=== PATIENT | female | born 1985 | race Caucasian/White ===

== ENCOUNTER 2019-11-04 22:53 | Emergency (ER) | payer OTHER ==
[2019-11-04 23:57] LABS: Protime INR 0.96
[2019-11-04] MEDS ORDERED: ACETAMINOPHEN 500 MG TAB ONE (23:57)
[2019-11-04] MEDS ORDERED: FENTANYL CITR 100 MCG/2 ML ONE (23:57)
[2019-11-04 23:58] LABS: Absolute Lymphocytes (CBC) 2.6 K/uL (0.7-4.9); Basophils % 0.7 % (0-1.3); Hematocrit 43.1 % (36.0-45.0); Lymphocytes % 22.1 % (15.3-44.8); RBC Red Blood Cell Count 4.74 M/uL (3.86-4.86)
[2019-11-05 00:11] LABS: ALT/SGPT 24 U/L (12-78); AST/SGOT 12 U/L (15-37); Albumin 3.6 g/dL (3.4-5.0); Alkaline Phosphatase 83 U/L (45-117); BUN Blood Urea Nitrogen 12 mg/dL (7-18); Bicarbonate 25 mmol/L (21-32); Bilirubin Direct 0.1 mg/dL (0-0.2); Bilirubin Total 0.3 mg/dL (0.2-1.0); Glucose Level 102 mg/dL (74-106); Potassium 3.8 mmol/L (3.5-5.1); Protein, Total 7.6 g/dL (6.4-8.2); Sodium Level 140 mmol/L (136-145); Troponin (Emerg Dept Use Only) < 0.02 ng/mL (0.0-0.045)
[2019-11-05 00:18] LABS: Urine Mucus 3+ /HPF (NONE SEEN)
[2019-11-05 00:26] LABS: Urine Bacteria <20 /HPF (<20); Urine Culture Reflex Order NOT NEEDED; Urine RBC <5 /HPF (NONE SEEN)
[2019-11-05 00:26] LABS: Urine Blood NEGATIVE (NEG); Urine Glucose NEGATIVE (NEG); Urine Protein TRACE (NEG); Urine Specific Gravity >1.030 (1.005-1.030); Urine pH 5.5 (5.0-7.0)
[2019-11-05] MEDS ORDERED: LORazepam 2 MG/ML VIAL ONE (01:02)
--- NOTE | 2019-11-05 01:46 | EDPHYS ---
Physician Documentation [facility] Name: Jarvis Lewis Age: 34 yrs Sex: Female : 1985 Arrival Date: 11/04/2019 Time: 22:58 Bed 7 Private MD: ED Physician Baldo Barbosa HPI: 11/04 23:48 This 34 yrs old Female presents to ER via Wheelchair with complaints of Chest wa Pain. 23:48 The patient or guardian reports chest pain that is located primarily in the anterior wa aspect of left upper chest and left breast. The pain does not radiate. Associated signs and symptoms: Pertinent positives: shortness of breath, Pertinent negatives: abdominal pain, cough, lightheadedness. The chest pain is described as sharp. Duration: The patient or guardian reports a single episode, that is still ongoing. Modifying factors: The symptoms are alleviated by nothing. the symptoms are aggravated by deep breath. Severity of pain: At its worst the pain was moderate in the emergency department the pain is unchanged. The patient has experienced a previous episode, approximately 3 years ago, was dx'd with PE. The patient has not recently seen a physician. h/o PE. taken off blood thinners 2 yrs ago. c/o pleuritic chest pain since this AM. denies cough, fever, or leg swelling. states pain L side. worse with deep breathing.. CATERING SOUS CHEF: 23:09 LMP 10/04/2019 ak1 Historical: - Allergies: 23:12 Fluoxetine; ak1 - Home Meds: 23:12 None [Active]; ak1 - PMHx: 23:12 Pulmonary Embolism; ak1 - PSHx: 23:12 LEFT ARM sx; ak1 - Immunization history:: Adult Immunizations unknown. - Social history:: Smoking status: Patient/guardian denies using tobacco. - Ebola Screening: : No symptoms or risks identified at this time. - Family history:: not pertinent. - Hospitalizations: : No recent hospitalization is reported. ROS: 11/05 01:23 Constitutional: Negative for fever, chills, and weight loss, Eyes: Negative for injury, wa pain, redness, and discharge, ENT: Negative for injury, pain, and discharge, Neck: Negative for injury, pain, and swelling, Abdomen/GI: Negative for abdominal pain, nausea, vomiting, diarrhea, and constipation, Back: Negative for injury and pain, : Negative for injury, bleeding, discharge, and swelling, MS/Extremity: Negative for injury and deformity, Skin: Negative for injury, rash, and discoloration, Neuro: Negative for headache, weakness, numbness, tingling, and seizure, Psych: Negative for depression, anxiety, suicide ideation, homicidal ideation, and hallucinations. Cardiovascular: Positive for chest pain, Negative for edema, orthopnea, palpitations. Respiratory: Positive for shortness of breath, at rest. Exam: :24 Constitutional: This is a well developed, well nourished patient who is awake, alert, wa and in no acute distress. Head/Face: Normocephalic, atraumatic. Eyes: Pupils equal round and reactive to light, extra-ocular motions intact. Lids and lashes normal. Conjunctiva and sclera are non-icteric and not injected. Cornea within normal limits. Periorbital areas with no swelling, redness, or edema. ENT: Nares patent. No nasal discharge, no septal abnormalities noted. Tympanic membranes are normal and external auditory canals are clear. Oropharynx with no redness, swelling, or masses, exudates, or evidence of obstruction, uvula midline. Mucous membranes moist. Neck: Trachea midline, no thyromegaly or masses palpated, and no cervical lymphadenopathy. Supple, full range of motion without nuchal rigidity, or vertebral point tenderness. No Meningismus. Chest/axilla: Normal chest wall appearance and motion. Nontender with no deformity. No lesions are appreciated. Abdomen/GI: Soft, non-tender, with normal bowel sounds. No distension or tympany. No guarding or rebound. No evidence of tenderness throughout. Back: No spinal tenderness. No costovertebral tenderness. Full range of motion. Skin: Warm, dry with normal turgor. Normal color with no rashes, no lesions, and no evidence of cellulitis. MS/ Extremity: Pulses equal, no cyanosis. Neurovascular intact. Full, normal range of motion. Neuro: Awake and alert, GCS 15, oriented to person, place, time, and situation. Cranial nerves II-XII grossly intact. Motor strength 5/5 in all extremities. Sensory grossly intact. Cerebellar exam normal. Normal gait. Psych: Awake, alert, with orientation to person, place and time. Behavior, mood, and affect are within normal limits. 01:24 Cardiovascular: Rate: normal, Rhythm: regular, Pulses: no pulse deficits are appreciated, Heart sounds: normal, Edema: is not appreciated, JVD: is not appreciated. 01:24 Respiratory: the patient does not display signs of respiratory distress, Respirations: normal, Breath sounds: are clear throughout, Respiratory rate: nml Vital Signs: 11/04 23:09 BP 131 / 109; Pulse 98; Resp 20; Temp 98.7(TE); Pulse Ox 100% on R/A; Weight 94.35 kg ak1 (R); Height 5 ft. 2 in. (157.48 cm) (R); Pain 9/10; 11/05 00:00 BP 123 / 78; Pulse 93; Resp 20; Pulse Ox 98% on R/A; lp1 00:30 BP 126 / 81; Pulse 77; Resp 15; Pulse Ox 100% on R/A; lp1 01:05 BP 141 / 93; Pulse 73; Resp 16; Pulse Ox 98% on R/A; Pain 8/10; lp1 02:02 BP 123 / 90; Pulse 73; Resp 18; Pulse Ox 97% on R/A; lp1 11/04 23:09 Body Mass Index 38.04 (94.35 kg, 157.48 cm) ak1 MDM: 11/04 23:02 Patient medically screened. wa 11/05 01:25 Differential diagnosis: h/o PE 3 years ago. presents with pleuritic chest pain and wa symptoms she says similar to her symptoms from previous PE. will work PE in the differential. r/o with CT chest. note: in the past, no DVT found on leg US. she has no LE complaints today either. 01:28 Data reviewed: lab test result(s). Test interpretation: by ED physician or midlevel me provider: labs noted wnl. CT pending. 01:37 Test interpretation: by ED physician or midlevel provider: EKG: HR 88. low voltage. nml wa sinus. nml axis. no zonal ischemic changes noted on EKG. Response to treatment: the patient's symptoms have markedly improved after treatment. 01:38 Test interpretation: by ED physician or midlevel provider: CT chest: no PE. no acute wa abnml. 01:41 ED course: improved. pt resting. negative for PE. will refer to cardiology and pulm. me advised immediate return for worsening. 11/04 23:30 Order name: Basic Metabolic Panel; Complete Time: 00:29 me 11/04 23:30 Order name: CBC with Diff; Complete Time: 00:29 me 11/04 23:30 Order name: LFT's; Complete Time: 00:29 me 11/04 23:30 Order name: PT-INR; Complete Time: 00:30 me 11/04 23:30 Order name: Troponin (emerg Dept Use Only); Complete Time: 00:30 me 11/04 23:32 Order name: Urine Microscopic Only; Complete Time: 00:29 me 11/04 23:31 Order name: Chest Pa And Lat (2 Views) XRAY me 11/05 00:03 Order name: Urine Dipstick--Ancillary (enter results); Complete Time: 00:30 [facility] 11/05 00:03 Order name: Urine --Ancillary (enter results); Complete Time: 00:29 [facility] 11/05 00:33 Order name: CT Chest For PE Angio me 11/04 23:30 Order name: EKG; Complete Time: 23:32 me 11/04 23:30 Order name: Cardiac monitoring; Complete Time: 23:32 me 11/04 23:30 Order name: EKG - Nurse/Tech; Complete Time: 23:32 me 11/04 23:30 Order name: IV Saline Lock; Complete Time: 23:32 me 11/04 23:30 Order name: Labs collected and sent; Complete Time: 23:32 me 11/04 23:30 Order name: O2 Per Protocol; Complete Time: 23:32 me 11/04 23:30 Order name: O2 Sat Monitoring; Complete Time: 23:32 me 11/04 23:32 Order name: Urine Dipstick-Ancillary (obtain specimen); Complete Time: 00:09 me 11/04 23:33 Order name: Urine Test (obtain specimen); Complete Time: 00:09 me Administered Medications: 00:09 Drug: Tylenol 1000 mg Route: PO; lp1 00:53 Follow up: Response: No adverse reaction lp1 00:09 Drug: fentaNYL (PF) 25 mcg Route: IVP; Site: right antecubital; lp1 00:52 Follow up: Response: Pain is unchanged, physician notified; RASS: Restless (+1) lp1 01:08 Drug: Ativan 1 mg Route: IVP; Site: right antecubital; lp1 01:45 Follow up: Response: Marked relief of symptoms; Anxiety decreased lp1 02:01 Drug: Aspirin Chewable Tablet 324 mg Route: PO; lp1 02:25 Follow up: Response: No adverse reaction lp1 Disposition: 11/05/19 01:45 Discharged to Home. Impression: acute left side pleuritic chest pain. - Condition is Stable. - Prescriptions for Albuterol Sulfate 90 mcg/actuation - inhale 1-2 puff by INHALATION route every 4-6 hours; 1 Inhaler. Ibuprofen 600 mg Oral Tablet - take 1 tablet by ORAL route every 8 hours As needed take with food; 20 tablet. - Medication Reconciliation Form, Thank You Letter, Antibiotic Education, Prescription Opioid Use form. - Follow up: Luis F Scott MD; Reason: Recheck today's complaints. Follow up: Stephen Rivas MD; When: 1 - 2 days; Reason: Recheck today's complaints. - Problem is new. - Symptoms have improved. - Notes: take motrin for pain as needed. follow up with the heart doctor and the lung doctor prescribed for you. return immediately for worsening symptoms Signatures: Dispatcher [employer] EDSivan Driscoll RN RN lp1 Evette Smith RN RN ak1 Baldo Barbosa MD MD wa Corrections: (The following items were deleted from the chart) 02:26 01:45 11/05/2019 01:45 Discharged to Home. Impression: acute left side pleuritic chest lp1 pain. Condition is Stable. Forms are Medication Reconciliation Form, Thank You Letter, Antibiotic Education, Prescription Opioid Use. Follow up: Luis F Scott; Reason: Recheck today's complaints. Follow up: tSephen Rivas; When: 1 - 2 days; Reason: Recheck today's complaints. Problem is new. Symptoms have improved. wa
--- NOTE | 2019-11-05 01:46 | ER ---
Nurse's Notes [facility] Name: Jarvis Lewis Age: 34 yrs Sex: Female : 1985 Arrival Date: 11/04/2019 Time: 22:58 Bed 7 Private MD: Diagnosis: acute left side pleuritic chest pain Presentation: 11/04 23:10 Presenting complaint: Patient states: SOB and palpitations since 629. Transition of ak1 care: patient was not received from another setting of care. Onset of symptoms was November 04, 2019. Risk Assessment: Do you want to hurt yourself or someone else? Patient reports no desire to harm self or others. Initial Sepsis Screen: Does the patient meet any 2 criteria? No. Patient's initial sepsis screen is negative. Does the patient have a suspected source of infection? No. Patient's initial sepsis screen is negative. Care prior to arrival: None. 23:10 Method Of Arrival: Wheelchair ak1 23:10 Acuity: DAVID 3 ak1 Triage Assessment: 23:12 General: Appears in no apparent distress. Behavior is anxious. 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 - Social history:: Smoking status: Patient/guardian denies using tobacco. - Ebola Screening: : No symptoms or risks identified at this time. - Family history:: not pertinent. - Hospitalizations: : No recent hospitalization is reported. Screenin:29 Abuse screen: Denies threats or abuse. Denies injuries from another. Nutritional lp1 screening: No deficits noted. Tuberculosis screening: No symptoms or risk factors identified. Fall Risk None identified. Assessment: 23:30 General: Appears uncomfortable, Behavior is anxious, crying. Pain: Complains of pain in lp1 chest Pain does not radiate. Pain currently is 8 out of 10 on a pain scale. Quality of pain is described as sharp, Pain began gradually. Neuro: Level of Consciousness is awake, alert, obeys commands, Oriented to person, place, time, situation. Cardiovascular: Capillary refill < 3 seconds in bilateral fingers toes Patient's skin is warm and dry. Respiratory: Reports shortness of breath at rest on exertion pain with respiration Airway is patent Respiratory effort is even, Respiratory pattern is regular, Breath sounds are clear bilaterally. Onset: The symptoms/episode began/occurred gradually. GI: No signs and/or symptoms were reported involving the gastrointestinal system. : No signs and/or symptoms were reported regarding the genitourinary system. EENT: No signs and/or symptoms were reported regarding the EENT system. Derm: Skin is pink, warm \T\ dry. Musculoskeletal: No deficits noted. 23:45 Reassessment: Patient returned from radiology. lp1 11/05 00:42 Reassessment: Patient and/or family updated on plan of care and expected duration. Pain lp1 level reassessed. Reassessment: Patient states no pain relief at this time; Provider notified. General: Behavior is anxious, crying. 01:05 Reassessment: Patient returned from CT. lp1 02:02 Reassessment: Patient states chest pain relief at this time; aware of discharge lp1 instructions, attempting to call friend for ride home. 02:25 Reassessment: Friend at bedside for discharge of patient. lp1 Vital Signs: 11/04 23:09 BP 131 / 109; Pulse 98; Resp 20; Temp 98.7(TE); Pulse Ox 100% on R/A; Weight 94.35 kg ak1 (R); Height 5 ft. 2 in. (157.48 cm) (R); Pain 9/10; 11/05 00:00 BP 123 / 78; Pulse 93; Resp 20; Pulse Ox 98% on R/A; lp1 00:30 BP 126 / 81; Pulse 77; Resp 15; Pulse Ox 100% on R/A; lp1 01:05 BP 141 / 93; Pulse 73; Resp 16; Pulse Ox 98% on R/A; Pain 8/10; lp1 02:02 BP 123 / 90; Pulse 73; Resp 18; Pulse Ox 97% on R/A; lp1 11/04 23:09 Body Mass Index 38.04 (94.35 kg, 157.48 cm) ak1 ED Course: 11/04 22:58 Patient arrived in ED. cl3 23:02 Baldo Barbosa MD is Attending Physician. wa 23:09 Arm band placed on Patient placed in an exam room, on a stretcher, on pulse oximetry, ak1 Patient notified of wait time. 23:11 Triage completed. ak1 23:28 Sivan Allen, RN is Primary Nurse. lp1 23:29 Patient has correct armband on for positive identification. Placed in gown. Bed in low lp1 position. Call light in reach. air sampling and monitoring on. Pulse ox on. NIBP on. 23:30 Patient maintains SpO2 saturation greater than 95% on room air. lp1 23:57 Chest Pa And Lat (2 Views) XRAY In Process Unspecified. EDMS 12 01:03 CT Chest For PE Angio In Process Unspecified. EDMS 01:10 No provider procedures requiring assistance completed. lp1 01:43 Luis F Scott MD is Referral Physician. wa 01:43 Stephen Rivas MD is Referral Physician. wa 02:02 IV discontinued, No redness/swelling at site. Pressure dressing applied. lp1 Administered Medications: 00:09 Drug: Tylenol 1000 mg Route: PO; lp1 00:53 Follow up: Response: No adverse reaction lp1 00:09 Drug: fentaNYL (PF) 25 mcg Route: IVP; Site: right antecubital; lp1 00:52 Follow up: Response: Pain is unchanged, physician notified; RASS: Restless (+1) lp1 01:08 Drug: Ativan 1 mg Route: IVP; Site: right antecubital; lp1 01:45 Follow up: Response: Marked relief of symptoms; Anxiety decreased lp1 02:01 Drug: Aspirin Chewable Tablet 324 mg Route: PO; lp1 02:25 Follow up: Response: No adverse reaction lp1 Outcome: 01:45 Discharge ordered by . wa 02:03 Condition: good lp1 02:03 Discharge instructions given to patient, Instructed on discharge instructions, follow up and referral plans. medication usage, Demonstrated understanding of instructions, follow-up care, medications, Prescriptions given X 2. 02:26 Discharged to home ambulatory, with friend. lp1 02:26 Patient left the ED. lp1 Signatures: Dispatcher [employer] EDAZ Sivan Allen, ARSALAN RN lp1 Evette Smith RN RN ak1 Baldo Barbosa MD MD wa Lewis, Charde cl3
[2019-11-05] MEDS ORDERED: ASPIRIN 81 MG CHEWABLE TABLET ONE (01:52)
--- NOTE | 2019-11-05 08:17 | RAD REPORT ---
EXAM DESCRIPTION: RAD - Chest Pa And Lat (2 Views) - 11/04/2019 11:57 pm CLINICAL HISTORY: CHEST PAIN Chest pain. COMPARISON: Chest Single View dated 04/04/2017; Chest Single View dated 06/18/2016; Chest Single View dated 06/17/2016 FINDINGS: The lungs are clear. The heart is normal in size. No displaced fractures. IMPRESSION: No acute or concerning finding suspected.
--- NOTE | 2019-11-05 08:22 | EKG ---
Test Date: 2019-11-04 Test Time: 23:09:39 Wildlife Photographer: ALL MEASUREMENT RESULTS: Intervals: Rate: 88 SC: 144 QRSD: 78 QT: 370 QTc: 447 [place]: P: 29 SC: 144 QRS: 40 T: 36 INTERPRETIVE STATEMENTS: Normal sinus rhythm Low voltage QRS Borderline ECG Compared to ECG 04/04/2017 13:08:54 Low QRS voltage now present Electronically Signed On 11-05-19 08:21:59 HOSPITALIST PHYSICIAN by Leighton Hogan
[2019-11-05 10:08] VITALS: TEMP 98.7
[2019-11-05 10:18] VITALS: BP 123/90; O2SAT 97
--- NOTE | 2019-11-05 10:32 | RAD REPORT ---
EXAM DESCRIPTION: CT Angiography Chest With Intravenous Contrast CLINICAL HISTORY: The patient is 34 years old and is Female; chest pain. H/o PE TECHNIQUE: Axial computed tomographic angiography images of the chest with intravenous contrast. T his CT exam was performed using one or more of the following dose reduction techniques: automated e xposure control, adjustment of the mA and/or kV according to patient size, and/or use of iterative re construction technique. MIP reconstructed images were created and reviewed. Oblique reformatted images were created and reviewed. DLP: 456 mGy*cm COMPARISON: None. FINDINGS: PULMONARY ARTERIES: Unremarkable. No pulmonary embolism. AORTA: No acute findings. No thoracic aortic aneurysm. LUNGS: No focal consolidation. Minimal bibasilar atelectasis. PLEURAL SPACE: No pleural effusion or pneumothorax. HEART: The heart is normal in size. No pericardial effusion. No evidence of RV dysfunction. BONES/JOINTS: No acute fracture. No dislocation. SOFT TISSUES: Unremarkable. LYMPH NODES: Unremarkable. No enlarged lymph nodes. IMPRESSION: No pulmonary embolism. No acute intrathoracic abnormality. Electronically signed by: Harpal Rivas DO 11/05/2019 1:18 AM SENIOR DIRECTOR MARKETING Due to temporary technical issues with the PACS/Fluency reporting system, reports are being signed by the in house radiologist as a courtesy to ensure prompt reporting. The interpreting radiologist is f ully responsible for the content of the report.
== END 2019-11-05 02:26 | disposition home or self-care (01) ==
LOC: ER 22:53
DX: R07.81 Pleurodynia (principal); Z88.8 Allergy status to other drugs, medicaments and biological substances
CPT/HCPCS: 93005; 85025; 80048; 36415; 81025; 85610; 80076; 81003; 81015; 84484; 71275; 71046; 96375; 96374; 99285; Q9967; J3010

== ENCOUNTER 2021-05-09 23:56 | Emergency (ER) | payer OTHER, SELFPAY ==
--- OUTSIDE RECORDS SUMMARY | 2021-05-09 23:59 | XMS REPORT | Continuity of Care Document ---
:1985 Author Organization [facility] t Address [address] [place] [address] Care Team Providers Name Role Phone Claudio Man DO Attending Clinician Bruce Jiang MD Attending Clinician Problems This patient has no known problems. Allergies, Adverse Reactions, Alerts This patient has no known allergies or adverse reactions. Medications This patient has no known medications. Procedures This patient has no known procedures. Encounters Start End Encounter Admission Attending Care Care Encounter Source Date/Time Date/Time Type Type Clinicians Facility Department ID 2021-02-14 2021-02-14 Patient Donovan [facility] [id number] 00:00:00 00:00:00 Outreach Skinny DE JESUS [id number] Claudio [facility] [id number] FANNY [id number] 2020-07-26 2020-07-26 Office Apolinar CAJESSICA [id number] 13:43:49 15:01:01 Visit Desiree Stratton [id number] Enrrique [id number] Yue [id number] [address] Results This patient has no known results.
[2021-05-10] MEDS ORDERED: ONDANSETRON 4 MG (ODT) TAB ONE (01:13)
[2021-05-10] MEDS ORDERED: HYDROCODONE/APAP 10/325 TAB ONE (01:14)
--- NOTE | 2021-05-10 02:00 | EDPHYS ---
Physician Documentation [facility] Name: Jarvis Lewis Age: 35 yrs Sex: Female : 1985 Arrival Date: 05/10/2021 Time: 00:01 Bed 23 Private MD: ED Physician Godwin Viramontes HPI: 05/10 01:53 This 35 yrs old Female presents to ER via EMS with complaints of Arm Injury, rn Arm Pain. 01:53 The patient or guardian complains of decreased range of motion, injury, pain. The rn complaints affect the left wrist. Onset: The symptoms/episode began/occurred just prior to arrival. Associated signs and symptoms: Pertinent positives: pain, swelling, Pertinent negatives: weakness. Severity of symptoms: At their worst the symptoms were moderate, in the emergency department the symptoms have improved. The patient has not experienced similar symptoms in the past. Reports closing dresser drawer and got left hand caught, + heard a crack, thinks broke left wrist. 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 - Social history:: Smoking status: Patient denies any tobacco usage or history of. - Family history:: not pertinent. - Hospitalizations: : No recent hospitalization is reported. ROS: 01:53 Constitutional: Negative for fever, chills, and weight loss, MS/Extremity: + injury and rn pain to left wrist Skin: NO laceration Exam: 01:53 Constitutional: This is a well developed, well nourished patient who is awake, alert, rn appears to be in pain, holding arm elevated, with ice to injured area. MS/ Extremity: Pulses equal, no cyanosis. Neurovascular intact. + swelling and ecchymosis with focal tenderness left distal radius. No open wounds. Vital Signs: 00:30 BP 154 / 110; Pulse 91; Resp 18 S; Temp 98.7(O); Pulse Ox 98% on R/A; Weight 94.35 kg; bb Height 5 ft. 3 in. (160.02 cm); Pain 10/10; 02:00 BP 155 / 103; Pulse 87; Resp 16 S; Temp 98.3(O); Pulse Ox 95% on R/A; Pain 5/10; bb 00:30 Body Mass Index 36.85 (94.35 kg, 160.02 cm) bb MDM: 01:05 Patient medically screened. rn 01:53 Differential diagnosis: closed fracture, contusion. Data reviewed: vital signs, nurses rn notes, radiologic studies, plain films, and as a result, I will discharge patient. Counseling: I had a detailed discussion with the patient and/or guardian regarding: the historical points, exam findings, and any diagnostic results supporting the discharge/admit diagnosis, radiology results, the need for outpatient follow up, to return to the emergency department if symptoms worsen or persist or if there are any questions or concerns that arise at home. Response to treatment: the patient's symptoms have mildly improved after treatment, and as a result, I will discharge patient. Special discussion: I discussed with the patient/guardian in detail that at this point there is no indication for admission to the hospital. It is understood, however, that if the symptoms persist or worsen the patient needs to return immediately for re-evaluation. Based on the history and exam findings, there is no indication for further emergent testing or inpatient evaluation. I discussed with the patient/guardian the need to see the orthopedic surgeon for further evaluation of the symptoms. 05/10 00:34 Order name: XRAY Wrist LEFT 3 view 05/10 00:34 Order name: XRAY Hand LEFT 3 View bb 05/10 01:18 Order name: Splint - Sugar Tong - Forearm; Complete Time: 01:38 rn Administered Medications: 01:02 Drug: Gilead (HYDROcodone-acetaminophen) 10 mg-325 mg 1 tabs {Note: RASS 0.} Route: PO; bb 02:01 Follow up: Response: No adverse reaction; Pain is decreased; RASS: Alert and Calm (0) bb 01:03 Drug: Zofran (Ondansetron) 4 mg Route: PO; bb 02:01 Follow up: Response: No adverse reaction bb Disposition: 05/10/21 01:59 Discharged to Home. Impression: Displaced comminuted fracture of shaft of radius, left arm. - Condition is Stable. - Discharge Instructions: Cast or Splint Care, Adult, Wrist Fracture Treated With Immobilization. - Prescriptions for Tylenol- Codeine #3 300-30 mg Oral Tablet - take 1 tablet by ORAL route every 4-6 hours As needed; 15 tablet. - Medication Reconciliation Form, Thank You Letter, Antibiotic Education, Prescription Opioid Use form. - Follow up: Brandon Novoa MD; When: 5 - 6 days; Reason: Recheck today's complaints, Re-evaluation by your physician. - Problem is new. - Symptoms have improved. Signatures: Dispatcher [employer] EDLia Taveras RN RN Godwin Osborn MD MD rn liaison: (The following items were deleted from the chart) 02:02 01:59 05/10/2021 01:59 Discharged to Home. Impression: Displaced comminuted fracture of bb shaft of radius, left arm. Condition is Stable. Forms are Medication Reconciliation Form, Thank You Letter, Antibiotic Education, Prescription Opioid Use. Follow up: Dr. Brandon Novoa; When: 5 - 6 days; Reason: Recheck today's complaints, Re-evaluation by your physician. Problem is new. Symptoms have improved. rn
--- NOTE | 2021-05-10 02:00 | ER ---
Nurse's Notes [facility] Name: Jarvis Lewis Age: 35 yrs Sex: Female : 1985 Arrival Date: 05/10/2021 Time: 00:01 Bed 23 Private MD: Diagnosis: Displaced comminuted fracture of shaft of radius, left arm Presentation: 05/10 00:30 Chief complaint: EMS states: they were toned out for report of pt with injury to left bb arm. Coronavirus screen: At this time, the client does not indicate any symptoms associated with coronavirus-19. Initial Sepsis Screen: Does the patient meet any 2 criteria? No. Patient's initial sepsis screen is negative. Does the patient have a suspected source of infection? No. Patient's initial sepsis screen is negative. Risk Assessment: Do you want to hurt yourself or someone else? Patient reports no desire to harm self or others. Onset of symptoms was May 09, 2021. 00:30 Method Of Arrival: EMS: [facility] 00:30 Acuity: DAVID 4 bb 01:59 Ebola Screen: No symptoms or risks identified at this time. bb Triage Assessment: 00:34 General: Appears uncomfortable, Behavior is cooperative. Pain: Complains of pain in bb left arm Pain currently is 10 out of 10 on a pain scale. Neuro: Level of Consciousness is awake, alert, obeys commands, Oriented to person, place, time, situation. Cardiovascular: Capillary refill < 3 seconds Patient's skin is warm and dry. Respiratory: Respiratory effort is unlabored. GI: No signs and/or symptoms were reported involving the gastrointestinal system. Derm: Skin is pink, warm \T\ dry. Musculoskeletal: Circulation, motion, and sensation intact. left hand, wrist Reports pain in left arm. Injury Description: pt hit her left hand on corner of the dresser. [employer]: 00:32 LMP 04/08/2021 bb Historical: - Allergies: 00:32 Fluoxetine; bb - PMHx: 00:32 Pulmonary Embolism; bb - PSHx: 00:32 LEFT ARM sx; bb - Immunization history:: Adult Immunizations up to date. - Social history:: Smoking status: Patient denies any tobacco usage or history of. - Family history:: not pertinent. - Hospitalizations: : No recent hospitalization is reported. Screenin:41 Abuse screen: Denies threats or abuse. Nutritional screening: No deficits noted. bb Tuberculosis screening: No symptoms or risk factors identified. Fall Risk None identified. Assessment: 00:41 Reassessment: No changes from previously documented assessment. see triage assessment. bb 01:58 Reassessment: Patient is alert, oriented x 3, equal unlabored respirations, skin bb warm/dry/pink. splint to right arm in place cap refill less than 3 seconds. Pt verbalized understanding of and agrees to plan of care discharge instructions given pt assisted to exit via wheelchair accompanied by family Patient states feeling better. Vital Signs: 00:30 BP 154 / 110; Pulse 91; Resp 18 S; Temp 98.7(O); Pulse Ox 98% on R/A; Weight 94.35 kg; bb Height 5 ft. 3 in. (160.02 cm); Pain 10/10; 02:00 BP 155 / 103; Pulse 87; Resp 16 S; Temp 98.3(O); Pulse Ox 95% on R/A; Pain 5/10; bb 00:30 Body Mass Index 36.85 (94.35 kg, 160.02 cm) bb ED Course: 00:01 Patient arrived in ED. cf2 00:32 Triage completed. bb 00:32 Arm band placed on Patient placed in an exam room, in a wheelchair, on pulse oximetry. bb X-ray ordered. 00:36 Lia Sarmiento RN is Primary Nurse. bb 00:41 Patient has correct armband on for positive identification. Call light in reach. bb 01:03 left arm elevated on pillow, ice bag applied. bb 01:05 Godwin Viramontes MD is Attending Physician. rn 01:09 XRAY Wrist LEFT 3 view In Process Unspecified. EDMS 01:09 XRAY Hand LEFT 3 View In Process Unspecified. EDMS 01:40 Orthoglass splint: Sugar tong splint applied on left arm. By [facility] aicha bb applied. 01:56 Brandon Novoa MD is Referral Physician. rn 01:59 No provider procedures requiring assistance completed. Patient did not have IV access bb during this emergency room visit. Administered Medications: 01:02 Drug: [place] (HYDROcodone-acetaminophen) 10 mg-325 mg 1 tabs {Note: RASS 0.} Route: PO; bb 02:01 Follow up: Response: No adverse reaction; Pain is decreased; RASS: Alert and Calm (0) bb 01:03 Drug: Zofran (Ondansetron) 4 mg Route: PO; bb 02:01 Follow up: Response: No adverse reaction bb Outcome: :59 Discharge ordered by . rn :59 Discharged to home ambulatory, via wheelchair, with family. bb :59 Condition: stable :59 Discharge instructions given to patient, Instructed on discharge instructions, follow up and referral plans. no driving heavy equipment, medication usage, Demonstrated understanding of instructions, follow-up care, medications, splint care, Prescriptions given X 1. 02:02 Patient left the ED. bb Signatures: Dispatcher [employer] EDLia Taveras RN RN bb Nieto, Roman, MD MD rn Frazier, Celesta cf2
[2021-05-10 02:10] VITALS: BP 155/103; TEMP 98.3; O2SAT 95
--- NOTE | 2021-05-10 11:46 | RAD REPORT ---
EXAM DESCRIPTION: RAD - Wrist Left 3 View - 05/10/2021 1:09 am CLINICAL HISTORY: Pain; Deformity TECHNIQUE: Three views of the left wrist are submitted. COMPARISON: None available for comparison FINDINGS: Bones: Focal cortical offset along the radial and articular aspect of the radial styloid p rocess on one view Joints: No dislocation. Soft tissues: Dorsal soft tissue swelling. EXAM DESCRIPTION: XR Hand Left 3 View (accession [id number]) CLINICAL HISTORY: Pain; Deformity TECHNIQUE: Three views of the left hand are submitted. COMPARISON: None available for comparison FINDINGS: Bones: Focal cortical offset along the radial and articular aspect of the radial styloid p rocess on one view Joints: No dislocation. Soft tissues: Dorsal soft tissue swelling. IMPRESSION: LEFT WRIST: Possible radial styloid process fracture. LEFT HAND: Possible radial styloid process fracture. Electronically signed by: Arabella Escudero MD 05/10/2021 2:04 AM CDT Due to temporary technical issues with the PACS/Fluency reporting system, reports are being signed by the in house radiologists without review as a courtesy to insure prompt reporting. The interpreting radiologist is fully responsible for the content of the report.
--- NOTE | 2021-05-10 11:48 | RAD REPORT ---
EXAM DESCRIPTION: RAD -Hand Left 3 View - 05/10/2021 1:09 am CLINICAL HISTORY: Pain; Deformity TECHNIQUE: Three views of the left wrist are submitted. COMPARISON: None available for comparison FINDINGS: Bones: Focal cortical offset along the radial and articular aspect of the radial styloid p rocess on one view Joints: No dislocation. Soft tissues: Dorsal soft tissue swelling. EXAM DESCRIPTION: XR Hand Left 3 View (accession [id number]) CLINICAL HISTORY: Pain; Deformity TECHNIQUE: Three views of the left hand are submitted. COMPARISON: None available for comparison FINDINGS: Bones: Focal cortical offset along the radial and articular aspect of the radial styloid p rocess on one view Joints: No dislocation. Soft tissues: Dorsal soft tissue swelling. IMPRESSION: LEFT WRIST: Possible radial styloid process fracture. LEFT HAND: Possible radial styloid process fracture. Electronically signed by: Arabella Escudero MD 05/10/2021 2:04 AM CDT Due to temporary technical issues with the PACS/Fluency reporting system, reports are being signed by the in house radiologists without review as a courtesy to insure prompt reporting. The interpreting radiologist is fully responsible for the content of the report.
== END 2021-05-10 02:02 | disposition home or self-care (01) ==
LOC: ER 23:56
PROC: 2W3DX1Z Immobilization of Left Lower Arm using Splint (ICD-10-PCS; principal; 2021-05-10)
DX: S52.352A Displaced comminuted fracture of shaft of radius, left arm, initial encounter for closed fracture (principal); W22.03XA Walked into furniture, initial encounter; Z88.8 Allergy status to other drugs, medicaments and biological substances
CPT/HCPCS: 99284

== ENCOUNTER 2024-10-06 01:16 | Emergency (ER) | payer OTHER, SELFPAY ==
--- OUTSIDE RECORDS SUMMARY | 2024-10-06 01:19 | XMS REPORT | Continuity of Care Document ---
Author Name Unknown Address [address] [facility]. [address] [place] [address] [facility] thconnect Address [address] [facility] [address] [place] [address] Care Team Providers Care Office Machine Service Supervisor Name Role Phone Vane Ferguson Primary Care Physician [phone] Vane Ferguson Attending Clinician Unavailable Marianela Wilhelm MA Attending Clinician UnavailJulia Calixto Attending Clinician Unavailable ELIS CRUZ Attending Clinician Unavailable Dacia Ignacio Attending Clinician [phone] Elis Cruz MD Attending Clinician [phone] KAITLYNN BIRMING[place]AM Attending Clinician Unavailable BIANCA SALDANA Attending Clinician Unavailable Kaitlynn Birmingham MD Attending Clinician [phone] Doctor Unassigned, [place] Attending Clinician U Bianca Franco PA-C Attending Clinician [phone] SIMMONSOLEGARIO BRANDI Attending Clinician Unavailable DESIREE JIANG Attending Clinician Unavailable Donovan GARCÍA Skinny Claudio Attending Clinician Desiree Jiang MD Attending Clinician [phone] Julia Lobo Admitting Clinician Unavailable ELIS CRUZ Admitting Clinician Unavailable Elis Cruz MD Admitting Clinician VALENCIAKAITLYNN Admitting Clinician Unavailable Payers Payer Name Policy Type Policy Number Effective Date Expirati on Date Source Problems Condition Name Condition Details Condition Category Status Onset Date Resolution Date Last Treatment Date Treating Clinician Comments Source Lower abdominal pain Lower abdominal pain Disease Active 2021-11 0-05 00:00: 00 [facility] Obesity (BMI 30-39.9) Obesity (BMI 30-39.9) Disease Active 07-26 00:00: 00 [facility] Allergies, Adverse Reactions, Alerts Allergy Name Allergy Type Status Severity Reaction(s) Onset Date Inactive Date Treating Clinician Comments Source latex DA Active SV LOCALIZED SWELLING 1 00:00: 00 [facility] Fluoxeti ne Propensi ty to adverse reaction s Active Palpitations 07-26 00:00: 00 [facility] FLUOXETI NE DRUG INGREDI Active High Palpitations 07-26 00:00: 00 [facility] paroxeti ne DA Active MO TACHYCARDIA 2015-11 217 00:00: 00 [facility] Social History Social Habit Start Date Stop Date Quantity Comments Source History of tobacco use Current smoker [facility] SDOH Alcohol Frequency [facility] History SDOH [facility] History SDOH Alcohol Binge [facility] Exposure to SARS-CoV-2 (event) 2022-08-18 00:00:00 2022-08-28 08:14:00 Not sure [facility] Education - What is the highest level of school you have completed or the highest degree you have received? 2022-08-28 00:00:00 2022-08-28 00:00:00 Associate degree: academic program [facility] History of Social function 2022-08-28 00:00:00 2022-08-28 00:00:00 [facility] Tobacco use and exposure 2022-08-28 00:00:00 2022-08-28 00:00:00 Smokeless tobacco non-user [facility] Alcohol intake 2022-08-28 00:00:00 2022-08-28 00:00:00 Current drinker of alcohol (finding) [facility] Alcohol Comment 2020-07-26 00:00:00 2020-07-26 00:00:00 occasionally [facility] Sex Ass[birth year] At 1985 00:00:00 1985 00:00:00 [facility] Smoking Status Start Date Stop Date Source Ex-smoker 2022-08-28 00:00:00 2022-08-28 00:00:00 [facility] Medications Ordered Medication Name Filled Medication Name Start Date Stop Date Current Medication? Ordering Clinician Indication Dosage Frequency Signature (SIG) Comments Components Source ketorolac (TORADOL) injection 15 mg 2021-11 0-05 18:12: 33 Yes 15mg 15 mg, Slow IV Push, Q8HPRN, 4 doses, Starting on Sat08/29/22 at 1312, Until Discontinu ed, Routine, Alternate with [place] for pain scale 4-6 [facility] amLODIPine (NORVASC) tablet 10 mg 2021-11 0-05 14:00: 00 Yes 10mg 10 mg, Oral, DAILY, First dose on Sat08/29/22 at 0900, Until Discontinu ed, Routine [facility] ketorolac (TORADOL) injection 30 mg 2021-11 0-05 03:30: 00 08-29 03:50 :00 No 30mg 30 mg, Slow IV Push, ONCE, 1 dose, On Sat08/28/22 at 2230, Routine [facility] proMETHazin e (PHENERGAN) 12.5 mg in NS 50 mL IV piggyback (CNR) 2021-11 0-05 03:30: 00 08-29 04:08 :00 No 12.5mg 12.5 mg, IV Piggyback, at 200 mL/hr Administer over 15 Minutes, ONCE, 1 dose, On Sat08/28/22 at 2230, Routine [facility] ondansetron 4 mg tablet 2021-11 0 00:00: 00 Yes [id number] 4mg Take 1 tablet by mouth every 8 (eight) hours as needed for Nausea and Vomiting (N/V). [facility] ketorolac 10 mg tablet 2021-11 0 00:00: 00 Yes [id number] 10mg Take 1 tablet by mouth 2 (two) times daily as needed for Pain (scale 4-6). [facility] HYDROcodone -acetaminop hen 5-325 mg tablet 2021-11 00:00: 00 09-06 04:59 :00 No [id number] 1{tbl} Take 1 tablet by mouth every 6 (six) hours as needed for Pain (scale 4-6) for up to 7 days. Indication s: acute pain [facility] ondansetron (ZOFRAN (PF)) injection 4 mg 2021-11 23:27: 53 Yes 4mg 4 mg, Slow IV Push, Q6HPRN, Nausea and Vomiting (N/V), Starting on Sat08/28/22 at 1827
Do ses of ondansetro n 16 mg and above need to be administer ed via IV piggyback. For Dose >=24mg ECG monitoring is advisable.
[facility] morpHINE (2 mg/mL) injection 2 mg 2021-11 22:55: 37 Yes 2mg 2 mg, Slow IV Push, Q4HPRN, Starting on Sat08/28/22 at 1755, Until Discontinu ed, Routine, Pain (scale 7-10) [facility] HYDROcodone -acetaminop hen (NORCO 5) 5-325 mg tablet 1 tablet 2021-11 22:55: 27 Yes 1{tbl} 1 tablet, Oral, Q6HPRN, Starting on Sat08/28/22 at 1755, Until Discontinu ed, Routine, Pain (scale 4-6) [facility] NaCl 0.9% (NS) IV infusion 1,000 mL 2021-11 22:15: 00 Yes 1000mL at 75 mL/hr, IV Infusion, CONTINUOUS , Starting on Sat08/28/22 at 1715, Until Discontinu ed, Routine [facility] piperacilli n-tazobacta m (ZOSYN) 3.375 g in NaCl 0.9% (NS) 50 mL MINI-BAG 2021-11 22:00: 00 08-28 22:54 :00 No 3.375g 3.375 g, IV Piggyback, ONCE, 1 dose, On Sat08/28/22 at 1700, Administer over 30 Minutes, 50 mL
Reas on for Anti-Infec tive: Documented Infection< br>Documen polina Infection Site: Abdominal< br>Duratio n of Therapy: 7 days [facility] hydrALAZINE (APRESOLINE ) tablet 25 mg 2021-11 21:28: 07 Yes 25mg 25 mg, Oral, Q6HPRN, Starting on Sat08/28/22 at 1628, Until Discontinu ed, Routine, sbp > 160 [facility] acetaminoph en (TYLENOL) tablet 650 mg 2021-11 17:30: 00 08-28 17:21 :00 No 650mg 650 mg, Oral, ONCE, 1 dose, On Sat08/28/22 at 1230, DAJUAN [facility] ketorolac (TORADOL) injection 30 mg 2021-11 15:30: 00 08-28 14:35 :00 No 30mg 30 mg, Slow IV Push, ONCE, 1 dose, On Sat08/28/22 at 1030, DAJUAN [facility] NaCl 0.9% (NS) bolus infusion 1,000 mL 2021-11 14:45: 00 08-28 18:02 :00 No 1000mL at 999 mL/hr, 1,000 mL, IV Infusion, ONCE, 1 dose, On Sat08/28/22 at 0945, STAT [facility] iopamidol (ISOVUE 370-500 mL) injection 60 mL 2021-11 0-04 14:29: 00 08-28 14:29 :00 No [id number] 60mL 60 mL, Intravenou s, ONCE, 1 dose, On Sat08/28/22 at 0945, Routine [facility] ondansetron (ZOFRAN (PF)) injection 4 mg 2021-11 004 13:45: 00 08-28 13:40 :00 No 4mg 4 mg, Slow IV Push, ONCE, 1 dose, On Sat08/28/22 at 0845, DAJUAN [facility] morpHINE (4 mg/mL) injection 4 mg 2021-11 13:45: 00 08-28 13:40 :00 No 4mg 4 mg, Slow IV Push, ONCE, 1 dose, On Sat08/28/22 at 0845, STAT [facility] amLODIPine 10 mg tablet 02-20 00:00: 00 Yes [id number] 10mg Take 1 tablet by mouth daily. [facility] lisinopriL (PRINIVIL) 20 mg tablet 02-20 00:00: 00 Yes [id number] 20mg Take 1 tablet by mouth daily. [facility] Immunizations Ordered Immunization Name Filled Immunization Name Date Status Comments Source Influenza Virus Vaccine Quad ID [id number] YRS Unknown Completed [facility] Vital Signs Vital Name Observation Time Observation Value Comments S ource Systolic blood pressure 2022-08-29 20:47:00 147 mm[Hg] [facility] Diastolic blood pressure 2022-08-29 20:47:00 89 mm[Hg] [facility] Heart rate 2022-08-29 20:47:00 81 /min [facility] Body temperature 2022-08-29 20:47:00 37.06 Edwina [facility] Respiratory rate 2022-08-29 20:47:00 18 /min [facility] Oxygen saturation in Arterial blood by Pulse oximetry 2022-08-29 20:47:00 98 /min [facility] Body height 2022-08-28 19:00:00 160 cm [facility] Body weight 2022-08-28 19:00:00 100.3 kg [facility] BMI 2022-08-28 19:00:00 39.17 kg/m2 [facility] Systolic blood pressure 2022-02-20 19:56:00 174 mm[Hg] [facility] Diastolic blood pressure 2022-02-20 19:56:00 104 mm[Hg] [facility] Heart rate 2022-02-20 19:56:00 80 /min [facility] Body height 2022-02-20 19:43:00 160 cm [facility] Body weight 2022-02-20 19:43:00 97.75 kg [facility] BMI 2022-02-20 19:43:00 38.17 kg/m2 [facility] Oxygen saturation in Arterial blood by Pulse oximetry 2022-02-20 19:43:00 96 /min [facility] Procedures Procedure Date / Time Performed Performing Clinician Source C-REACTIVE PROTEIN 2022-08-29 13:22:00 Elis Cruz [facility] SEDIMENTATION RATE 2022-08-29 13:22:00 Elis Cruz [facility] CLOSTRIDIUM DIFFICILE TOXIN 2022-08-29 09:35:00 Mp Raygo[facility] CT ABDOMEN PELVIS W CONTRAST 2022-08-28 14:34:01 Dacia Dukes [facility] POCT TEST 2022-08-28 13:41:00 Dacia Dukes [facility] URINALYSIS 2022-08-28 13:37:00 Dacia Dukes [facility] LIPASE 2022-08-28 13:30:00 Dacia Dukes [facility] COMP. METABOLIC PANEL (53000) 2022-08-28 13:30:00 Dacia Dukes [facility] CBC WITH DIFF 2022-08-28 13:30:[address] [facility] CONSENT/REFUSAL FOR DIAGNOSIS AND TREATMENT 2022-08-28 13:01:50 Doctor Unassigned, [place] [facility] HOSPITAL ADMISSION 2022-08-28 05:01:00 Doctor Un assigned, [place] [facility] DSU PRE-OP 2022-02-20 05:01:00 Doctor Unass igned, [place] [facility] Encounters Start Date/Time End Date/Time Encounter Type Admission Type Attending [facility] Facility Care Department Encounter ID Source 2021-12-20 11:43:33 Outpatient Vane Ferguson [facility] [id number] [facility] 2021-12-20 11:43:07 Outpatient Vane Ferguosn [facility] [id number] 2024-03-16 00:00:00 2024-03-16 00:00:00 Telephone Wilhelm, [facility] [id number] [id number] [id number] [id number] [facility] 2022-12-04 13:07:00 2022-12-05 19:30:[address] [facility] OBPP [id number] [facility] 2022-08-28 08:12:00 2022-08-29 19:00:00 Outpatient ELIS GHOTRA [facility] [id number] [facility] 2022-08-28 08:12:00 2022-08-29 19:00:00 Emergency Dacia Dukes [facility] [id number] 350.1.13.10 [id number] [id number] [facility] 2022-03-26 14:00:00 2022-03-26 14:00:00 Outpatient KAITLYNN ROCK [facility] [id number] [facility] 2022-03-26 14:00:00 2022-03-26 14:00:00 Outpatient KAITLYNN ROCK [facility] [id number] [facility] 2022-03-23 08:00:00 2022-03-23 08:00:00 Outpatient R KAITLYNN BIR[place]ING[place]AM [facility] [id number] [facility] 2022-03-23 08:00:00 2022-03-23 08:00:00 [facility] [id number] 2022-03-20 09:00:00 2022-03-20 09:00:00 [facility] [id number] [facility] 2022-02-27 13:00:00 2022-02-27 13:00:00 Outpatient R BIANCA SALDANA [facility] [id number] [facility] 2022-02-27 00:00:00 2022-02-27 00:00:00 Patient Secure Msg [facility] 1..840.114 350.1.13.10 4.2.7.2.686 [id number] [facility] 2022-02-26 08:00:00 2022-02-26 23:59:00 [facility] [id number] [facility] 2022-02-26 08:00:00 2022-02-26 08:00:00 [facility] [id number] [facility] 2022-02-26 00:00:00 2022-02-26 00:00:00 Patient Secure Msg Doctor Unassigned, [place] [facility] 1.840.114 350.1.13.10 4.2.7.2.686 [id number] [facility] 2022-02-20 14:40:00 2022-02-20 15:16:50 [facility] 1..840.114 350.1.13.10 4.2.7.2.686 [id number] [facility] 2022-02-20 14:40:00 2022-02-20 15:16:50 Outpatient KAITLYNN ROCK [facility] [id number] [facility] 2022-02-20 13:45:00 2022-02-20 14:34:21 Outpatient BIANCA STAPLES [facility] [id number] [facility] 2022-02-20 13:45:00 2022-02-20 14:34:21 Office Visit Bianca Saldana [facility] 1..840.114 350.1.13.10 4.2.7.2.686 [id number] [facility] 2022-02-20 13:45:00 2022-02-20 14:34:21 Outpatient BIANCA STAPLES [facility] [id number] [facility] 2022-02-20 00:00:00 2022-02-20 00:00:00 Orders Only Doctor Unassigned, [place] [facility] 1..840.114 350.1.13.10 4.2.7.2.686 [id number] [facility] 2022-02-14 09:00:00 2022-02-14 09:00:00 Outpatient Anthony SALDANA BIANCA [facility] [id number] [facility] 2022-02-08 13:00:00 2022-02-08 13:00:00 Outpatient BIANCA STAPLES [facility] [id number] [facility] 2022-01-17 14:00:00 2022-01-17 14:00:00 Outpatient OLEGARIO FRANCE [facility] [id number] [facility] 2021-07-26 09:30:00 2021-07-26 09:30:00 Outpatient DESIREE MEAD [facility] [id number] [facility] 2021-02-14 00:00:00 2021-02-14 00:00:00 Patient Outreach Skinny Man [facility] 1.2.840.114 350.1.13.10 4.2.7.2.686 [id number] 2020-07-26 13:43:49 2020-07-26 15:01:01 Office Visit Desiree Jiang [facility] Viral Turner [facility] 1..840.114 350.1.13.10 4.2.7.2.686 [id number] 2020-07-26 14:00:00 2020-07-26 14:00:00 Outpatient R DESIREE JIANG [facility] [id number] [facility] Results Test Description Test Time Test Comments Results Result Co mments Source - XR CHEST 2 [id number] 16:15:00 [facility] 1985 Sex: F FAX: Y Julia Lobo MD [phone] [place]: B St: ADM Name: SONIDO SAGASTUMEIN [facility] : 1985 Age/S: 37/F [address] [facility] Unit #: [id number] Loc: [place] [address] Phys: Julia Lobo MD Acct: [id number] Dis Date: Status: ADM IN PHONE #: [phone] Exam Date: 12/05/2022 1611 FAX #: [phone] Reason: RULE INFILTRATION EXAMS: CPT CODE: [id number] XR CHEST 2 V [id number] EXAM: Chest x-ray, 2 views; INFORMATION: Post ; FINDINGS: Platelike atelectasis in the right lower lung field; the remainder of the lungs is clear; no infiltrates, edema; no effusions; no pneumothorax. Unremarkable cardiac mediastinal silhouette. Small amount of free air below the right hemidiaphragm. IMPRESSION: 1. Platelike atelectasis in the right lung. Otherwise, no signs of active cardiopulmonary disease. 2. Mild pneumoperitoneum. FINDINGS were discussed with the patient's nurse indicates that the patient is status post laparoscopic hysterectomy yesterday. Therefore this is consistent with a postoperative pneumoperitoneum. Location code: [facility] at 1615 Reported and signed by: Elkin Giron M.D. CC: Julia Lobo MD Technologist: Earl Pete RT(R) Trnscrd Date/Time/By: 12/05/2022 (1615) : By: [email or web address] Print D/T: S: 12/05/2022 (2878) PAGE 1 Signed ReportCBC W/AUTO [id number] 08:53:00* Test Item Value Reference Range Interpretation Comme nts WHITE BLOOD CELL (test code = WBC) 13.6 K/mm3 4.5-12.5 H RED BLOOD CELL (test code = RBC) 3.96 mill/mm3 3.7-5.2 N HEMOGLOBIN (test code = HGB) 12.0 gram/dL 11.5-15.5 N HEMATOCRIT (test code = HCT) 37.1 % 36.0-46.0 N MEAN CELL VOLUME (test code = MCV) 93.7 fL 80-98 N MEAN CELL HGB (test code = MCH) 30.3 picogram 27.0-33.0 N MEAN CELL HGB CONCETRATION (test code = MCHC) 32.3 gram/dL 33.0-36.0 L RED CELL DISTRIBUTION WIDTH (test code = RDW) 12.7 % 11.6-16.2 N RED CELL DISTRIBUTION WIDTH SD (test code = RDW-SD) 43.9 fL 37.0-51.0 N PLATELET COUNT (test code = PLT) 276 K/mm3 150-450 N MEAN PLATELET VOLUME (test c ode = MPV) 11.3 fL 6.7-11.0 H NEUTROPHIL % (test code = NT%) 78.6 % 39.0-69.0 H IMMATURE GRANULOCYTE % (test code = IG%) 0.4 % 0.0-5.0 N LYMPHOCYTE % (test code = LY%) 15.3 % 25.0-55.0 L MONOCYTE % (test code = MO%) 5.4 % 0.0-10.0 N EOSINOPHIL % (test code = EO%) 0.1 % 0.0-5.0 N BASOPHIL % (test code = BA%) 0.2 % 0.0-1.0 N NUCLEATED RBC % (test code = NRBC%) 0.0 % 0-0 N NEUTROPHIL # (test code = NT#) 10.70 K/mm3 1.8-7.7 H IMMATURE GRANULOCYTE # (test code = IG#) 0.06 x10 3/uL 0-0.03 H LYMPHOCYTE # (test code = LY#) 2.09 K/mm3 1.0-5.0 N MONOCYTE # (test code = MO#) 0.74 K/mm3 0-0.8 N EOSINOPHIL # (test code = EO#) 0.02 K/mm3 0.0-0.5 N BASOPHIL # (test code = BA#) 0.03 K/mm3 0.0-0.2 N NUCLEATED RBC # (test code = NRBC#) 0.00 K/mm3 0.0-0.1 N COMPREHENSIVE METABOLIC [id number] 08:50:00* Test Item Value Reference Range Interpretation Comme nts SODIUM (test code = NA) 142 mmol/L 136-145 N POTASSIUM (test code = K) 4.3 mmol/L 3.5-5.1 N CHLORIDE (test code = CL) 108.0 mmol/L 98-107 H CARBON DIOXIDE (test code = CO2) 26.0 mmol/L 21-32 N ANION GAP (test code = GAP) 12.3 10-20 N GLUCOSE (test code = GLU) 92 mg/dL 74-106 N BLOOD UREA NITROGEN (test code = BUN) 9 mg/dL 7-18 N GLOMERULAR FILTRATION RATE (test code = GFR) > 60 mL/min See_Comment The Glomerular Filtration Rate is a calculated parameterbased on serum Creatinine, patient age and sex. GFR valuesless than 60 mL/min/1.73 square meters are indicative ofChronic Kidney Disease. Values less than 15 mL/min/1.73square meters indicate Kidney failure. The calculation forGFR is based on the CKD-EPI (2020) calculation. This formulais race indifferent and is the recommended formula for GFRby the National Kidney Foundation for Adults.The GFR will not calculate if the sex is unknown or if thepatient's age is <18 years. [Automated message] The system which generated this result transmitted reference range: >=60. The reference range was not used to interpret this result as normal/abnormal. CREATININE (test code = CREAT) 0.70 mg/dL 0.55-1.02 N Note change in reference range due to change in reagent. BUN/CREATININE RATIO (test code = BUN/CREA) 12.9 10-20 N TOTAL PROTEIN (test code = PROT) 5.8 gram/dL 6.4-8.2 L ALBUMIN (test code = ALB) 3.1 g/dL 3.4-5.0 L GLOBULIN (test code = GLOB) 2.7 gram/dL 2.7-4.2 N ALBUMIN/GLOBULIN RATIO (test code = A/G) 1.1 0.75-1.50 N CALCIUM (test code = CA) 7.3 mg/dL 8.5-10.1 L BILIRUBIN TOTAL (test code = BILT) 0.30 mg/dL 0.0-1.0 N SGOT/AST (test code = AST) 13 IUnit/L 15-37 L SGPT/ALT (test code = ALT) 14 IUnit/L 12-78 N ALKALINE PHOSPHATASE TOTAL (test code = ALKP) 55 IUnit/L 45-117 N Note change in reference range due to change in reagent. HGB [id number] 15:32:00* Test Item Value Reference Range Interpretation Comme nts HEMOGLOBIN (test code = HGB) 10.5 gram/dL 11.5-15.5 L HEMATOCRIT (test code = HCT) 31.4 % 36.0-46.0 L [id number] 07:19:00* Test Item Value Reference Range Interpretation Comme nts GLUBED (test code = GLUBED) 94 mg/dL 74-106 N Performed by cer tified variety lathe operator at [facility] URINALYSIS [id number] 16:37:00* Test Item Value Reference Range Interpretation Comme nts UA COLOR (test code = COLU) YELLOW YELLOW UA APPEARANCE (test code = APPU) CLEAR CLEAR IS THE SAMPLE FROM ER OR L&D? IF THE ANSWER IS NO,PLEASE DOCUMENT TWO RN SIGNATURES HERE- by [id number] 11/30/22 2064 UA GLUCOSE DIPSTICK (test code = DGLUU) NEGATIVE mg/dL NEGATIVE UA BILIRUBIN DIPSTICK (test code = BILU) NEGATIVE mg/dL NEGATIVE UA KETONE DIPSTICK (test code = KETU) NEGATIVE mg/dL NEGATIVE UA SPECIFIC GRAVITY (test code = SGU) 1.032 1.001-1.035 UA BLOOD DIPSTICK (test code = FE) Negative mg/dL NEGATIVE UA PH DIPSTICK (test code = MAN) 6.0 5.0-8.0 UA PROTEIN DIPSTICK (test code = PROU) 20 (Trace) mg/dL NEGATIVE A UA UROBILINIOGEN DIPSTICK (test code = URO) Normal mg/dL NEGATIVE UA NITRITE DIPSTICK (test code = SHERRY) NEGATIVE NEGATIVE UA LEUKOCYTE ESTERASE W REFLEX (test code = LEUUR) NEGATIVE Juan/uL NEGATIVE UA WBC (test code = WBCU) 0-5 per HPF 0-5 UA RBC (test code = RBCU) 0-2 #/HPF 0-5 UA EPITHELIAL CELLS (test code = EPIU) FEW per HPF FEW UA BACTERIA (test code = BACU) NONE SEEN #/HPF NONE UA HYALINE CAST (test code = HYALU) 0-2 #/LPF 0-5 UA MUCUS (test code = MUCU) MANY #/LPF FEW A Urine Source? Clean CatchCOMPREHENSIVE METABOLIC [id number] 16:33:00* Test Item Value Reference Range Interpretation Comme nts SODIUM (test code = NA) 140 mmol/L 136-145 N POTASSIUM (test code = K) 3.7 mmol/L 3.5-5.1 N CHLORIDE (test code = CL) 105.0 mmol/L 98-107 N CARBON DIOXIDE (test code = CO2) 26.0 mmol/L 21-32 N ANION GAP (test code = GAP) 12.7 10-20 N GLUCOSE (test code = GLU) 83 mg/dL 74-106 N BLOOD UREA NITROGEN (test code = BUN) 12 mg/dL 7-18 N GLOMERULAR FILTRATION RATE (test code = GFR) > 60 mL/min See_Comment The Glomerular Filtration Rate is a calculated parameterbased on serum Creatinine, patient age and sex. GFR valuesless than 60 mL/min/1.73 square meters are indicative ofChronic Kidney Disease. Values less than 15 mL/min/1.73square meters indicate Kidney failure. The calculation forGFR is based on the CKD-EPI (2020) calculation. This formulais race indifferent and is the recommended formula for GFRby the National Kidney Foundation for Adults.The GFR will not calculate if the sex is unknown or if thepatient's age is <18 years. [Automated message] The system which generated this result transmitted reference range: >=60. The reference range was not used to interpret this result as normal/abnormal. CREATININE (test code = CREAT) 0.70 mg/dL 0.55-1.02 N Note change in reference range due to change in reagent. BUN/CREATININE RATIO (test code = BUN/CREA) 17.6 10-20 N TOTAL PROTEIN (test code = PROT) 7.7 gram/dL 6.4-8.2 N ALBUMIN (test code = ALB) 4.1 g/dL 3.4-5.0 N GLOBULIN (test code = GLOB) 3.6 gram/dL 2.7-4.2 N ALBUMIN/GLOBULIN RATIO (test code = A/G) 1.1 0.75-1.50 N CALCIUM (test code = CA) 8.3 mg/dL 8.5-10.1 L BILIRUBIN TOTAL (test code = BILT) 0.30 mg/dL 0.0-1.0 N SGOT/AST (test code = AST) 14 IUnit/L 15-37 L SGPT/ALT (test code = ALT) 18 IUnit/L 12-78 N ALKALINE PHOSPHATASE TOTAL (test code = ALKP) 71 IUnit/L 45-117 N Note change in reference range due to change in reagent. HCG SERUM [id number] 16:25:00* Test Item Value Reference Range Interpretation Comme nts HCG SERUM QUAL (test code = HCGQL) NEGATIVE NEGATIVE This HCGQL test is NOT applicable for MALE patients.Check with nurse about probable order error.If Tumor Marker Test needed, nurse should order test "HCGTU"(Test #550.31143) CBC W/AUTO [id number] 16:09:00* Test Item Value Reference Range Interpretation Comme nts WHITE BLOOD CELL (test code = WBC) 10.4 K/mm3 4.5-12.5 N RED BLOOD CELL (test code = RBC) 4.76 mill/mm3 3.7-5.2 N HEMOGLOBIN (test code = HGB) 14.4 gram/dL 11.5-15.5 N HEMATOCRIT (test code = HCT) 43.6 % 36.0-46.0 N MEAN CELL VOLUME (test code = MCV) 91.6 fL 80-98 N MEAN CELL HGB (test code = MCH) 30.3 picogram 27.0-33.0 N MEAN CELL HGB CONCETRATION (test code = MCHC) 33.0 gram/dL 33.0-36.0 N RED CELL DISTRIBUTION WIDTH (test code = RDW) 12.9 % 11.6-16.2 N RED CELL DISTRIBUTION WIDTH SD (test code = RDW-SD) 43.6 fL 37.0-51.0 N PLATELET COUNT (test code = PLT) 325 K/mm3 150-450 N MEAN PLATELET VOLUME (test c ode = MPV) 11.1 fL 6.7-11.0 H NEUTROPHIL % (test code = NT%) 72.5 % 39.0-69.0 H IMMATURE GRANULOCYTE % (test code = IG%) 0.2 % 0.0-5.0 N LYMPHOCYTE % (test code = LY%) 19.9 % 25.0-55.0 L MONOCYTE % (test code = MO%) 5.9 % 0.0-10.0 N EOSINOPHIL % (test code = EO%) 0.9 % 0.0-5.0 N BASOPHIL % (test code = BA%) 0.6 % 0.0-1.0 N NUCLEATED RBC % (test code = NRBC%) 0.0 % 0-0 N NEUTROPHIL # (test code = NT#) 7.56 K/mm3 1.8-7.7 N IMMATURE GRANULOCYTE # (test code = IG#) 0.02 x10 3/uL 0-0.03 N LYMPHOCYTE # (test code = LY#) 2.08 K/mm3 1.0-5.0 N MONOCYTE # (test code = MO#) 0.62 K/mm3 0-0.8 N EOSINOPHIL # (test code = EO#) 0.09 K/mm3 0.0-0.5 N BASOPHIL # (test code = BA#) 0.06 K/mm3 0.0-0.2 N NUCLEATED RBC # (test code = NRBC#) 0.00 K/mm3 0.0-0.1 N - XR CHEST 2 [id number] 14:04:00 [facility])Name: TANIKA CAILINUYEN HERNANDEZ : 1985 Sex: F FAX: Sincere Boswell [phone] [place]: O St: PRE [facility] 1985 Age/S: 37/F Zenaida Lew Unit #: [id number] Loc: YARITZA Rodriguez [address] Phys: Sincere Ellis MD Acct: [id number] Dis Date: Status: PRE SDC PHONE #: [phone] Exam Date: 11/30/2022 1333 FAX #: [phone] Reason: PRE OP EXAMS: CPT CODE: [id number] XR CHEST 2 V 13520 EXAM: Chest X-ray, 2 views; CLINICAL HISTORY: Dysmenorrhea, menometrorrhagia; preop; FINDINGS: The lungs areclear, no infiltrates, no edema; no effusions; no pneumothorax; normal cardiomediastinal silhouette. IMPRESSION: Normal chest x- ray. Location code: [facility] at 1404 Reported and signed by: Elkin Giron M.D. CC: Sincere Ellis Technologist: Marley ARGUELLES(Anthony) Trnscrd Date/Time/By: 11/30/2022 (1404) : By: ZackGRW Orig PrintD/T: S: 11/30/2022 (2064) PAGE 1 Signed ReportSEDIMENTATION [id number] 15:04:20* Test Item Value Reference Range Interpretation Comme nts ESR (test code = 18946-4) See_Comment [Automated message] The system which generated this result transmitted reference range: 0 - 20 mm/HR. The reference range was not used to interpret this result as normal/abnormal. Lab Interpretation (test code = 52256-2) Normal [facility] [id number] 13:49:53* Test Item Value Reference Range Interpretation Comme nts CRP (test code = 4022724640) 2.8 mg/dL See_Comment H [Automated messa ge] The system which generated this result transmitted reference range: <=1.0. The reference range was not used to interpret this result as normal/abnormal. Lab Interpretation (test code = 36188-6) Abnormal [facility]Complete Metabolic [id number] 14:01:02* Test Item Value Reference Range Interpretation Comme nts NA (test code = 0223424141) 140 mmol/L 135-145 K (test code = 8717841132) 4.1 mmol/L 3.5-5 CL (test code = 8023640647) 106 mmol/L 98-108 CO2 TOTAL (test code = 7342984404) 22 mmol/L 23-31 L AGAP (test code = 5378626503) 2-16 BUN (test code = 0248632264) 12 mg/dL 7-23 GLUCOSE (test code = 3419479036) 107 mg/dL 70-110 CREATININE (test code = 5363012625) 0.74 mg/dL 0.5-1.04 TOTAL BILI (test code = 6665380181) 0.4 mg/dL 0.1-1.1 CALCIUM (test code = 2278243996) 8.9 mg/dL 8.6-10.6 T PROTEIN (test code = 8123635821) 7.3 g/dL 6.3-8.2 ALBUMIN (test code = 3347996235) 4.4 g/dL 3.5-5 ALK PHOS (test code = 0392003772) 77 U/L 34-122 ALTv (test code = 1742-6) 33 U/L 5-35 AST(SGOT) (test code = 7867287388) 22 U/L 13-40 eGFR (test code = 6061627479) mL/min/1.73m2 IAM (test code = IAM) Association of Glomerular Filtration Rate (GFR) and Staging of Kidney Disease* + --+ --+ ------+| GFR (mL/min/1.73 m2) ?| With Kidney Damage ?| ?Without Kidney Damage+ --------+ --------+ +| ?>90 ?| ?Stage one ?| ? Normal ?+ ---+ ---+ -------+| ?60-89 ?| ?Stage two ?| ? Decreased GFR ? + --+ --+ ------+| ?30-59 ?| ?Stage three ?| ? Stage three ? + --+ --+ ------+| ?15-29 ?| ?Stage four ? | ? Stage four ?+ ---+ ---+ -------+| ?<15 (or dialysis) ? ?| ?Stage five ? | ? Stage five ?+ ---+ ---+ -------+ *Each stage assumes the associated GFR level has been in effect for at least three months. ?Stages 1 to 5, with or without kidney disease, indicate chronic kidney disease. Notes: Determination of stages one and two (with eGFR >59mL/min/1.73 m2) requires estimation of kidney damage for at least three months as defined by structural or functional abnormalities of the kidney, manifested by either:Pathological abnormalities or Markers of kidney damage (including abnormalities in the composition of the blood or urine or abnormalities in imaging tests). Lab Interpretation (test code = 63705-0) Abnormal [facility] HospitalLipase, [id number] 14:00:42* Test Item Value Reference Range Interpretation Comme [facility] LIPASE (test code = 6782038715) 83 U/L 0-220 Lab Interpretation (test cod e = 63256-7) Normal [facility] HospitalCB with [id number] 13:50:19* Test Item Value Reference Range Interpretation Comme nts WBC (test code = 6690-2) See_Comment [Media Chaperone] The system which generated this result transmitted reference range: 4.30 - 11.10 10*3/?L. The reference range was not used to interpret this result as normal/abnormal. RBC (test code = 789-8) See_Comment [Media Chaperone] The system which generated this result transmitted reference range: 3.93 - 5.25 10*6/?L. The reference range was not used to interpret this result as normal/abnormal. HGB (test code = 718-7) 14.3 g/dL 11.6-15 HCT (test code = 4544-3) 41.3 % 35.7-45.2 MCV (test code = 787-2) 89.8 fL 80.6-95.5 MCH (test code = 785-6) 31.1 pg 25.9-32.8 MCHC (test code = 786-4) 34.6 g/dL 31.6-35.1 RDW-SD (test code = 56740-0) 41.6 fL 39-49.9 RDW-CV (test code = 788-0) 12.6 % 12-15.5 PLT (test code = 777-3) See_Comment [Automated messa ge] The system which generated this result transmitted reference range: 166 - 358 10*3/?L. The reference range was not used to interpret this result as normal/abnormal. MPV (test code = 35428-1) 10.6 fL 9.5-12.9 NRBC/100 WBC (test code = 5696008107) See_Comment [Automated [place] ssage] The system which generated this result transmitted reference range: 0.0 - 10.0 /100 WBCs. The reference range was not used to interpret this result as normal/abnormal. NRBC x10^3 (test code = 7211162510) See_Comment [Automated messa ge] The system which generated this result transmitted reference range: 10*3/?L. The reference range was not used to interpret this result as normal/abnormal. GRAN MAT (NEUT) % (test code = 770-8) 78.9 % IMM GRAN % (test code = 8269579325) 0.30 % LYMPH % (test code = 736-9) 12.2 % MONO % (test code = 5905-5) 7.7 % EOS % (test code = 713-8) 0.6 % BASO % (test code = 706-2) 0.3 % GRAN MAT x10^3(ANC) (test code = 4566410854) 8.63 10*3/uL 1.88-7.09 H IMM GRAN x10^3 (test code = 1759391006) 0.03 10*3/uL 0-0.06 LYMPH x10^3 (test code = 731-0) 1.34 10*3/uL 1.32-3.29 MONO x10^3 (test code = 742-7) 0.84 10*3/uL 0.33-0.92 EOS x10^3 (test code = 711-2) 0.07 10*3/uL 0.03-0.39 BASO x10^3 (test code = 704-7) 0.03 10*3/uL 0.01-0.07 Lab Interpretation (test code = 07998-1) Abnormal [facility] HospitalPOCT [id number] 13:41:00* Test Item Value Reference Range Interpretation Comme nts POCT PREG (test code = 1605) negtative On board controls acceptable with C Line (test code = 3574) present Lab Interpretation (test cod e = 60104-8) Normal [facility] Notes Date/Time Note Provider Source 2024-03-16 13:39:36 Completed Chart review/Care everywhere/Immtrac. Immtrac2 immunizations were reconciled. Care Everywhere no new medical records obtained at this time for [facility]. Did not send patient a message via [facility] Overdue Health Maintenance. No futurre appointments at this time. No insurance on file currently active. Health Maintenance Due Topic Date Due SARS-CoV-2 (COVID-19) Vaccine (1) Never done VARICELLA VACCINES (1 of 2 - 2-dose childhood series) Never done Depression Screening Never done SDOH Financial Resource Strain Never done SDOH Food Insecurity Never done SDOH Transportation Needs Never done DTaP,Tdap,and Td Vaccines (1 - Tdap) Never done INFLUENZA VACCINE (1) 07/26/2023 Records Update Encounter Health Maintenance Team completed a CareEverywhere search to update records. No patient contact made. Castillo, [facility] [phone] [facility] 2022-12-05 20:22:00 [facility] ([facility]) Discharge Summary REPORT#:[id number] REPORT STATUS: Signed DATE:12/05/22 TIME: 2021 PATIENT: CAILIN SAGASTUME UNIT #: [id number] ROOM/BED: : 86 AGE: 37 SEX: F ATTEND: Julia Lobo MD ADM AUTHOR: Julia Lobo MD * ALL edits or amendments must be made on the electronic/computer document * PCP PCP Discharge to: home General Information Free Text A P: S/p robotic hysterectomy with bilateral enterectomy. Patient was tolerating regular diet, passed flatus. Abdomen was soft not tense not tender. Wound clean dry and intact. Discharge date: 12/05/22 Admission diagnosis: menoMetrorrhagia Dysmenorrhea Pelvic pain Discharge diagnosis: S/p robotic total laparoscopic hysterectomy with bilateral salpingectomy Hospital course: Rating regular diet, ambulating, voiding, passed flatus. Med Rec PCP PCP: PCP: Julia Lobo MD Med Rec Discharge meds: Continue taking these medications: LISINOPRIL (ZESTRIL) 20 MG TAB 20 MILLIGRAM ORAL DAILY. Start taking the following new medications: IBUPROFEN (MOTRIN) 800 MG TAB 800 MILLIGRAM ORAL THREE TIMES DAILY NEEDED. as needed for PAIN Qty = 30 Refills = 1 HYDROcodone/APAP (HYDROcodone/APAP 5/325) 5 MG-325 MG TAB 1 TABLET ORAL EVERY 6 HOURS NEEDED. as needed for PAIN Qty = 40 No Refills ENOXAPARIN (LOVENOX) 60 MG/0.6 ML DISP.SYRIN 60 MILLIGRAM SUBCUTANEOUS EVERY 24 HOURS. Qty = 30 No Refills Objective VS/I O Last Documented: Result Date Time Pulse Ox 96 12/05 1558 B/P 112/72 12/05 1558 B/P Mean 85.7 12/05 1558 Temp 98.1 12/05 1558 Pulse 70 12/05 1558 Resp 18 12/05 1558 O2 Delivery Nasal cannula 12/05 0316 O2 Flow Rate 2 12/04 2029 24 hour I O ending at 0700: 12/05 0700 12/04 1900 Intake Total 480.00 240.00 Output Total 1100 1575 Balance -620.00 -1335.00 Intake, IV 480.00 240.00 Output, Urine 1100 1575 PATIENT WEIGHT: Weight (lb): 213 Weight (oz): 13.57 Weight (kg): 97.000 General appearance: alert, awake, oriented Head/Eyes: atraumatic, clear cornea, EOMI, normocephalic, normal conjunctiva/ sclera, normal fundi, normal eyelids/periorb., PERRLA Cardiovascular: normal capillary refill, regular rate rhythm Respiratory: clear to auscultation, no distress, no tenderness GI: soft, non-tender, no guarding, no rebound, no distention, no mass/ organomegaly, no pulsatile mass, no hernia, normal abdominal aorta Extremities: moves all, no edema-all extremities, normal capillary refill, normal range of motion, normal sensory, normal motor function Musculoskeletal: full range of motion, normal inspection Neuro/COMMUNICATION INSTRUCTOR: alert, oriented X 3 Treatments Procedures Treatments Procedures: Robotic total laparoscopic hysterectomy with bilateral salpingectomy Discharge Instructions PCP )( Discharge to: Home/Self Care Discharge Instructions Additional Discharge Routines: Attending Follow-Up )( Diet: Regular )( Activity: As Tolerated, No Driving, No [place] for 6 Wks, no heavy lifting Walk and change positions to avoid blood clots Follow-up Appointments Attending Physician: Attending Physician: Julia Lobo MD at 2024 RPT #:[id number] [facility] 2022-12-04 12:16:00 [facility] ([facility]) Operative Note - Full REPORT#:[id number] REPORT STATUS: Signed DATE:12/04/22 TIME: 1216 PATIENT: CAILIN SAGASTUME UNIT #: [id number] ROOM/BED: : 86 AGE: 37 SEX: F ATTEND: Julia Lobo MD ADM AUTHOR: Julia Lobo MD * ALL edits or amendments must be made on the electronic/computer document * Operative Report Start date: 12/04/22 Start time: 939 Pre-procedure diagnosis: 1. Menometrorrhagia 2. Dysmenorrhea 3. Pelvic pain Post-procedure diagnosis: Same Procedures performed: Robotic assisted total laparoscopic hysterectomy with bilateral salpingectomy. Technique/Procedure: Laparoscopy Primary Surgeon: MD BALDEV Secretary To Board Of Commissioners(s): MD FARIDA Anesthesia: general anesthesia Operative findings: Uterus enlarged to about 10 weeks size. Evidence of bilateral tubal ligation seen. Both ovaries filled with simple cyst and the same drained Bladder filled retrograde with normal saline and found to be intact. Cystoscopy done and both ureteric orifices found to be patent. Complications: none Estimated blood loss in ml's: 50 cc Specimens removed/altered: uterus, cervix, both fallopian tubes Implant(s): none Approach: laparoscopic Disposition: PACU Free Text Op Notes Free Text Op Notes: DESCRIPTION OF PROCEDURE: The patient was taken to the operating room and general anesthesia was administered. The patient was placed in low lithotomy position. The arms were tucked. The patient was positioned appropriately making sure that there was no impingement on the nerves. The patient was then draped and prepped in the usual sterile fashion. DESCRIPTION OF THE VAGINAL PART OF THE PROCEDURE: A Dukes catheter was inserted. Sterile weighted speculum was placed. Cervix was grasped with a tenaculum. Uterus was sounded to about 10 cm. A large VCare uterine manipulator was placed around the cervix and the uterine balloon was inflated to about 10 mL of air. The cervical cup was snugly fitted around the cervix. This was followed by the vaginal cup. The vaginal occluder was placed around the VCare uterine manipulator and it was inflated to about 80 mL of normal saline for maintenance of pneumoperitoneum. DESCRIPTION OF THE ABDOMINAL PART OF THE PROCEDURE: Now attention was turned towards the abdominal part. A 8-mm incision was placed 3 cm above the umbilicus. The abdominal wall was lifted from the underlying structures. A 5-mm 0-degree laparoscope was inserted using a 8-mm non -bladed blunt trocar. By using the visual entry technique, every single layer was visualized. The scope was passed through the layers of the anterior abdominal wall. Once intra-abdominal entry was confirmed, pneumoperitoneum was created using high-pressure carbon dioxide. The placement of the primary port was done with the patient placed in the flat position. After the intra-abdominal entry was confirmed, pneumoperitoneum was created using high-pressure carbon dioxide. The site of entry was visualized to make sure that there were no adhesions present. There was no injury to the bowel or any vascular structures at the site of entry. After this, the patient was placed in the Trendelenburg position to enable displacement of bowel from the operative field. The lateral ports were marked at 11 cm out and 3 cm caudal to the umbilical port. Two lateral trocars, a 8 -mm blunt nonbladed trocar was placed in the right side of the abdomen under direct visualization taking care to avoid the inferior epigastric vessels and a 8 mm nonbladed blunt trocar was placed on the left side of the abdomen . The entire abdomen was visualized. The ports were inserted upto the black ring. The findings mentioned above were noted. At this time the robot was docked and the fenestrated bipolar forceps was inserted into the arm 2 and the vessel sealer was inserted into the arm 4 under direct visualization . After this step , the surgeon went to the console and began the hysterectomy. Attention was turned to the left side .The left mesosalpinx and the left utero ovarian ligament and the left broad ligament was clamped, coagulated and cut using the vessel sealer. The bladder flap was created and the uterine arteries were visualized . The uterine arteries were clamped , cauterized and cut using the vessel sealer. Attention was turned to the opposite side where the right meso salpinx , right utero ovarian and right round ligament and the broad ligament were clamped, coagulated and cut using the vessel sealer.The right uterine artery was clamped, coagulated and cut using the vessel sealer. At this time the vessel sealer was removed and monopolar scissors was inserted. The colpotomy was done using low energy cut mode and the colpotomy was carried out 360 degrees . Hemostasis was obtained when needed using the fenestrated bipolars. The uterus with the cervix and both the tubes were removed vaginally . The cuff was sutured using 0- vicryl interrupted figure of 8 sutures . Excellent hemostasis was obtained. The pelvis was irrigated and the instruments were removed. All the trocar sites were inspected. The bowel was inspected and found to be intact and no injuries noted. At the end of the procedure, the bladder was filled retrograde through the Dukes catheter. The bladder was noted to be intact. There was no leakage noted. Also, cystoscopy was done and both the ureteric orifices were visualized. Efflux of urine was noted from both the ureteric orifices. At the end of the procedure, the trocar sites were inspected once again and the incisions were closed with 4-0 Monocryl after release of pneumoperitoneum and removal of trocars. 5-0 nylon was used to suture the skin in addition to the 4- 0 Monocryl because of the patient's history of abdominoplasty. The patient was transferred to the recovery room in a stable condition. The patient tolerated the procedure well . ROLE OF BODY SHOP TECHNICIAN SURGEON DURING THE PROCEDURE : assisted with introduction of the suture needles, suction and irrigation during the procedure. at 1223 RPT #:[id number] [facility] 2022-12-04 08:30:00 [facility] ([facility]) Post Anesthesia Evaluation REPORT#:[id number] REPORT STATUS: Signed DATE:12/04/22 TIME: 0830 PATIENT: CAILIN SAGASTUME UNIT #: [id number] ROOM/BED: : 86 AGE: 37 SEX: F ATTEND: Julia Lobo MD ADM AUTHOR: January Hagen MD * ALL edits or amendments must be made on the electronic/computer document * Post Anesthesia Evaluation Anes. changes from pre-op eval ORM Surgeries: Surgery Date and Time: 12/04/2022 0820 Primary Procedure: ROBOTIC TLH Secondary Procedure: ROBOTIC BILAT SALPINGECTOMY Anesthetic: GETA Surgery: Same as above. Date: 12/04/22 Level of consciousness: patient awake, able to answer questions, participate in this eval. Neurological assessment: Neuromuscular block: resolved as expected Vital signs: Last Documented: Result Date Time Pulse Ox 96 12/05 1558 B/P 112/72 12/05 1558 B/P Mean 85.7 12/05 1558 Temp 36.7 12/05 1558 Pulse 70 12/05 1558 Resp 18 12/05 1558 O2 Delivery Nasal cannula 12/05 0316 O2 Flow Rate 2 12/04 2029 Cardiovascular: CV system stable, vital signs stable Respiratory/Airway: respiratory system stable, maintains without support Pain: adequately controlled Hydration: adequate Temp status: greater than 96.8F, normothermic Presence of N/V: no Anesthesia complications: no Other changes requiring f/u: none Conclusions: no apparent anes. issues at 1040 RPT #:[id number] [facility]
[2024-10-06] MEDS ORDERED: NITROGLYCERIN 0.4 MG/TAB SL ONE (01:47)
[2024-10-06] MEDS ORDERED: ASPIRIN 81 MG CHEWABLE TABLET ONE (01:47)
[2024-10-06 02:20] LABS: Absolute Basophils 0.1 K/uL (0-0.5); Absolute Eosinophils 0.1 K/uL (0-0.5); Absolute Lymphocytes (CBC) 2.7 K/uL (0.7-4.9); Absolute Monocytes 0.7 K/uL (0.1-1.3); Absolute Neutrophil 6.3 K/uL (1.8-8.0); Basophils % 0.7 % (0-1.3); Eosinophils % 1.2 % (0-4.4); Hematocrit 42.4 % (36.0-45.0); Lymphocytes % 27.7 % (15.3-44.8); MCH 30.3 pg (27.0-35.0); MCV 91.8 fL (80-100); MPV 9.5 fL (7.6-11.3); Neutrophils % 63.4 % (41.7-73.7); Platelets 287 thou/uL (152-406); RBC Red Blood Cell Count 4.62 M/uL (3.86-4.86); Red Cell Distribution Width 13.5 % (12.1-15.2)
[2024-10-06 02:32] LABS: ALT/SGPT 17 U/L (13-56); Albumin 3.4 g/dL (3.4-5.0); Albumin/Globulin Ratio 0.9 (1.1-1.8); Alkaline Phosphatase 79 U/L (45-117); Anion Gap 8.3 mEq/L (5.0-15.0); BUN Blood Urea Nitrogen 15 mg/dL (7-18); Bicarbonate 25 mEq/L (21-32); Bilirubin Total 0.3 mg/dL (0.2-1.0); Globulin 3.7 g/dL (2.3-3.5); Glomerular Filtration Rate 87 ml/min (=/>90); Glucose Level 97 mg/dL (74-106); Potassium 3.3 mEq/L (3.5-5.1); Protein, Total 7.1 g/dL (6.4-8.2); Sodium Level 139 mEq/L (136-145)
[2024-10-06 02:36] LABS: AST/SGOT < 10 U/L (15-37); Bilirubin Direct < 0.2 mg/dL (0-0.2); Bilirubin Indirect, Calculated 0.1 mg/dL (0.2-0.8)
[2024-10-06] MEDS ORDERED: ONDANSETRON 4 MG/2 ML VIAL ONE (03:15)
[2024-10-06] MEDS ORDERED: MORPHINE 4 MG/ML SYR ONE (03:15)
--- NOTE | 2024-10-06 04:12 | EDPHYS ---
Physician Documentation [facility] Name: Jarvis Lewis Age: 39 yrs Sex: Female : 1985 Arrival Date: 10/06/2024 Time: 01:16 Bed 6 Private MD: ED Physician Hemal Doherty HPI: 10/06 01:43 This 39 yrs old Female presents to ER via Wheelchair with complaints of Chest Pain, rt High Blood Pressure, Shortness Of Breath. 01:43 Patient with previous history of pulmonary embolus presents to the ED with chest pain, rt shortness of breath starting about 3 hours prior to arrival. This woke patient up from sleep. States that this feels similar to when she had a PE in the past. States that she has been out of her blood pressure medicines for quite some time. Denies other acute complaints, symptoms are moderate in severity, no other aggravating or elevating factors.. [employer]NAGER [employer]: 01:34 LMP N/A - Hysterectomy, Not vc1 Historical: - Allergies: 01:33 fluoxetine; vc1 - Home Meds: 01:33 None [Active]; vc1 - PMHx: 01:33 Pulmonary Embolism; Hypertensive disorder; vc1 - PSHx: 01:33 Total abdominal hysterectomy; Brachioplasty; Tummy tuck; vc1 - Immunization history:: Client reports having NOT received the Covid vaccine. Flu vaccine is not up to date. - Infectious Disease History:: Denies. - Social history:: Smoking status: Patient denies any tobacco usage or history of. - Family history:: not pertinent. ROS: 01:43 Constitutional: Negative for fever, chills, and weight loss, Abdomen/GI: Negative for rt abdominal pain, nausea, vomiting, diarrhea, and constipation, MS/Extremity: Negative for injury and deformity, Skin: Negative for injury, rash, and discoloration, Neuro: Negative for headache, weakness, numbness, tingling, and seizure, 01:43 Cardiovascular: Positive for chest pain, Negative for edema, 01:43 Respiratory: Positive for shortness of breath, Negative for cough, Exam: 01:43 Constitutional: This is a well developed, well nourished patient who is awake, alert, rt and in no acute distress. Head/Face: Normocephalic, atraumatic. Chest/axilla: Normal chest wall appearance and motion. Nontender with no deformity. No lesions are appreciated. Cardiovascular: Regular rate and rhythm with a normal S1 and S2. No gallops, murmurs, or rubs. Normal PMI, no JVD. No pulse deficits. Respiratory: Lungs have equal breath sounds bilaterally, clear to auscultation and percussion. No rales, rhonchi or wheezes noted. No increased work of breathing, no retractions or nasal flaring. Abdomen/GI: Soft, non-tender, with normal bowel sounds. No distension or tympany. No guarding or rebound. No evidence of tenderness throughout. Skin: Warm, dry with normal turgor. Normal color with no rashes, no lesions, and no evidence of cellulitis. MS/ Extremity: Pulses equal, no cyanosis. Neurovascular intact. Full, normal range of motion. Neuro: Awake and alert, GCS 15, oriented to person, place, time, and situation. Cranial nerves II-XII grossly intact. Motor strength 5/5 in all extremities. Sensory grossly intact. Cerebellar exam normal. Normal gait. 01:43 ECG was reviewed by the Attending Physician. Vital Signs: 01:31 BP 187 / 98; Pulse 75; Resp 12; Temp 98.5; Pulse Ox 100% ; Weight 100.7 kg; Height 5 vc1 ft. 3 in. ; Pain 10/10; 01:45 BP 164 / 104; Pulse 82; Resp 16; Pulse Ox 100% on R/A; al5 02:00 BP 157 / 96; Pulse 71; Resp 14; Pulse Ox 99% on R/A; al5 02:15 BP 153 / 95; Pulse 77; Resp 16; Pulse Ox 99% on R/A; al5 02:30 BP 141 / 94; Pulse 74; Resp 18; Pulse Ox 97% on R/A; al5 03:00 BP 157 / 91; Pulse 71; Resp 16; Pulse Ox 99% on R/A; al5 03:30 BP 147 / 90; Pulse 70; Resp 15; Pulse Ox 99% on R/A; al5 04:00 BP 128 / 92; Pulse 71; Resp 15; Pulse Ox 98% on R/A; al5 01:31 Body Mass Index 39.33 (100.70 kg, 160.02 cm) vc1 01:31 Pain Scale: Adult vc1 MDM: 01:27 Medical Screening Exam initiated rt 04:12 Differential diagnosis: ACS, chest wall pain, nonspecific chest pain, pneumonia, rt pneumothorax, pulmonary embolus. HEART Score: History: Slightly Suspicious (0), ECG: Normal (0), Age: < or = 45 years (0), Risk Factors: 1 or 2 risk factors (1), Troponin: < or = 1 x Normal Limit (0), Total Score = 1. Data reviewed: vital signs, nurses notes, lab test result(s), EKG, radiologic studies. Consideration of Admission/Observation Escalation of care including admission/observation considered. Low suspicion for acute coronary syndrome, EKG is normal, troponin is unremarkable, CT angiogram negative for pulmonary embolus, does not require admission for ACS rule out at this time.. I considered the following discharge prescriptions or medication management in the emergency department Medications were administered in the Emergency Department. See MAR. Independent interpretation of the following test(s) in the Emergency Department CT Scan: My interpretation is No pneumonia seen on my interpretation of CT scan images. Test considered but Not performed: X-ray: CT scan performed, chest x-ray redundant. Care significantly affected by the following chronic conditions: Hypertension. Counseling: I had a detailed discussion with the patient and/or guardian regarding the historical points, exam findings, and any diagnostic results supporting the discharge/admit diagnosis, the presence of at least one elevated blood pressure reading (>120/80) during this emergency department visit, lab results, radiology results, the need for outpatient follow up, to return to the emergency department if symptoms worsen or persist or if there are any questions or concerns that arise at home. Response to treatment: the patient's symptoms have markedly improved after treatment. 10/06 01:34 Order name: Basic Metabolic Panel; Complete Time: 04:08 rt 10/06 01:34 Order name: CBC with Diff; Complete Time: 04:08 rt 10/06 01:34 Order name: LFT's; Complete Time: 04:08 rt 10/06 01:34 Order name: Troponin HS; Complete Time: 04:08 rt 10/06 01:34 Order name: CT Chest For PE Angio rt 10/06 01:34 Order name: EKG; Complete Time: 01:35 rt 10/06 01:34 Order name: Cardiac monitoring; Complete Time: 01:36 rt 10/06 01:34 Order name: EKG - Nurse/Tech; Complete Time: 01:36 rt 10/06 01:34 Order name: IV Saline Lock; Complete Time: :37 rt 10/06 01:34 Order name: Labs collected and sent; Complete Time: :37 rt 10/06 01:34 Order name: O2 Per Protocol; Complete Time: 01:36 rt 10/06 01:34 Order name: O2 Sat Monitoring; Complete Time: :36 rt EC:43 Rate is 83 beats/min. Rhythm is regular, Normal Sinus Rhythm with No ectopy. QRS [place] rt is Normal. SD interval is normal. QRS interval is normal. QT interval is normal. No Q waves. T waves are Normal. No ST changes noted. Interpreted by me. Administered Medications: 01:53 Drug: Aspirin PO Chewable Tablet 324 mg PO once; 81 mg tablets x 4 Route: PO; al5 02:33 Follow up: Response: No adverse reaction; Pain is unchanged, physician notified; Pain al5 is unchanged 01:53 Drug: Nitroglycerin Sublingual 0.4 mg Sublingual once; every five minute if needed x3 al5 Route: Sublingual; 02:33 Drug: Nitroglycerin Sublingual 0.4 mg Sublingual once; every five minute if needed x3 al5 Route: Sublingual; 02:33 Follow up: Response: No adverse reaction; Pain is unchanged, physician notified; Pain al5 is unchanged, dose #2 given 03:03 Follow up: Response: No adverse reaction; Pain is unchanged, physician notified al5 03:34 Follow up: nitroglycerin not touching patient pain, switching pain medicines. al5 03:25 Drug: Ondansetron IVP 4 mg IVP once; over 2 minutes Route: IVP; Site: right antecubital;bm8 04:07 Follow up: Response: No adverse reaction; Nausea is decreased al5 03:26 Drug: morphine IVP or IV 4 mg IVP once over 4 mins Route: IVP; Infused Over: 4 mins; bm8 Site: right antecubital; 04:07 Follow up: Response: No adverse reaction; Pain is decreased al5 03:35 Drug: Nitroglycerin Sublingual 0.4 mg Sublingual once; every five minute if needed x3 al5 {Note: 3rd dose not administered. patient pain not relieved with nitro. notified and aware, switching pain medicine..} Route: Sublingual; 03:36 Follow up: Response: No adverse reaction al5 Disposition Summary: 10/06/24 04:12 Discharge Ordered Notes: Location: Home rt Problem: new rt Symptoms: have improved rt Condition: Stable rt Diagnosis - Chest pain, unspecified rt - Essential (primary) hypertension rt Followup: rt - With: Private Physician - When: 2 - 3 days - Reason: Discharge Instructions: - Discharge Summary Sheet rt - Nonspecific Chest Pain, Adult rt - Hypertension, Adult rt Forms: - Medication Reconciliation Form rt - Antibiotic Education rt - Prescription Opioid Use rt - Patient Portal Instructions rt - Leadership Thank You Letter rt Prescriptions: - amlodipine 10 mg Oral tablet - take 1 tablet ORAL route daily; 30 tablet; Refills: 0, Product Selection rt Permitted Signatures: Dispatcher [employer] Pita Singh RN RN vc1 Hemal Doherty MD MD rt Soy Sim, RN RN bm8 Naty Felder RN RN al5
--- NOTE | 2024-10-06 04:12 | ER ---
Nurse's Notes [facility] Name: Jarvis Lewis Age: 39 yrs Sex: Female : 1985 Arrival Date: 10/06/2024 Time: 01:16 Bed 6 Private MD: Diagnosis: Chest pain, unspecified;Essential (primary) hypertension Presentation: 10/06 01:31 Chief complaint: Patient states: I woke up with chest pain and shortness of breath. I vc1 felt like I couldn't be still so I checked my BP and it was high. I also feel short of breath. Coronavirus screen: Client denies travel out of the [place] in the last 14 days. At this time, the client does not indicate any symptoms associated with coronavirus-19. Ebola Screen: Patient negative for fever greater than or equal to 101.5 degrees Fahrenheit, and additional compatible Ebola Virus Disease symptoms Patient denies exposure to infectious person. Patient denies travel to an Ebola-affected area in the 21 days before illness onset. No symptoms or risks identified at this time. Initial Sepsis Screen: Does the patient meet any 2 criteria? No. Patient's initial sepsis screen is negative. Does the patient have a suspected source of infection? No. Patient's initial sepsis screen is negative. Risk Assessment: Do you want to hurt yourself or someone else? Patient reports no desire to harm self or others. Onset of symptoms was October 05, 2024 at 23:30. 01:31 Method Of Arrival: Wheelchair vc1 01:31 Acuity: DAVID 3 vc1 Triage Assessment: 01:34 General: Appears in no apparent distress. uncomfortable, obese, well groomed, well vc1 developed, Behavior is cooperative, anxious. Pain: Complains of pain in anterior aspect of left upper chest Pain does not radiate. Pain currently is 10 out of 10 on a pain scale. Quality of pain is described as pressure, Pain began suddenly, 2 hours ago. Is continuous, Also complains of shortness of breath. EENT: No deficits noted. No signs and/or symptoms were reported regarding the EENT system. Neuro: Level of Consciousness is awake, alert, obeys commands, Oriented to person, place, time, situation, Appropriate for age. Cardiovascular: Reports chest pain, shortness of breath, Patient's skin is warm and dry. Rhythm is sinus rhythm. Respiratory: Reports shortness of breath Airway is patent Respiratory effort is even, unlabored, Respiratory pattern is regular, symmetrical. GI: No deficits noted. No signs and/or symptoms were reported involving the gastrointestinal system. : No deficits noted. No signs and/or symptoms were reported regarding the genitourinary system. Derm: Skin is intact, is healthy with good turgor, Skin is dry, Skin is normal, Skin temperature is warm. Musculoskeletal: Circulation, motion, and sensation intact. Range of motion: intact in all extremities. JOB HAND: :34 LMP N/A - Hysterectomy, Not vc1 Historical: - Allergies: : fluoxetine; vc1 - Home Meds: : None [Active]; vc1 - PMHx: :33 Pulmonary Embolism; Hypertensive disorder; vc1 - PSHx: :33 Total abdominal hysterectomy; Brachioplasty; Tummy tuck; vc1 - Immunization history:: Client reports having NOT received the Covid vaccine. Flu vaccine is not up to date. - Infectious Disease History:: Denies. - Social history:: Smoking status: Patient denies any tobacco usage or history of. - Family history:: not pertinent. Screenin: [facility] ED Fall Risk Assessment (Adult) History of falling in the last 3 months, al5 including since admission No falls in past 3 months (0 pts) Confusion or Disorientation No (0 pts) Intoxicated or Sedated No (0 pts) Impaired Gait No (0 pts) Mobility Assist Device Used No (0 pt) Altered Elimination No (0 pt) Score/Fall Risk Level 0 - 2 = Low Risk Oriented to surroundings, Maintained a safe environment, Hourly rounding (assess needs \T\ fall precautionary measures) done. Abuse screen: Denies threats or abuse. Denies injuries from another. Nutritional screening: No deficits noted. Tuberculosis screening: No symptoms or risk factors identified. Assessment: : General: Appears in no apparent distress. uncomfortable, Behavior is calm, cooperative. al5 Pain: Complains of pain in anterior aspect of left upper chest Pain currently is 9 out of 10 on a pain scale. Pain: Pain began 2 hours ago. Is continuous. Neuro: Level of Consciousness is awake, alert, obeys commands, Oriented to person, place, time, situation. Cardiovascular: Capillary refill < 3 seconds Patient's skin is warm and dry. Rhythm is regular Chest pain is described as Pain is 9 out of 10 on a pain scale. Respiratory: Airway is patent Respiratory effort is even, unlabored, Respiratory pattern is regular, symmetrical. GI: No signs and/or symptoms were reported involving the gastrointestinal system. : No signs and/or symptoms were reported regarding the genitourinary system. EENT: No signs and/or symptoms were reported regarding the EENT system. Derm: Skin is intact, Skin is pink, warm \T\ dry. normal. Musculoskeletal: No signs and/or symptoms reported regarding the musculoskeletal system. 02:31 Reassessment: Patient appears in no apparent distress at this time. No changes from al5 previously documented assessment. Patient and/or family updated on plan of care and expected duration. Pain level reassessed. Patient is alert, oriented x 3, equal unlabored respirations, skin warm/dry/pink. 03:26 Reassessment: Patient appears in no apparent distress at this time. No changes from al5 previously documented assessment. Patient and/or family updated on plan of care and expected duration. Pain level reassessed. Patient is alert, oriented x 3, equal unlabored respirations, skin warm/dry/pink. 04:26 Reassessment: Patient appears in no apparent distress at this time. Patient and/or al5 family updated on plan of care and expected duration. Pain level reassessed. Patient is alert, oriented x 3, equal unlabored respirations, skin warm/dry/pink. Patient states feeling better. Vital Signs: 01:31 BP 187 / 98; Pulse 75; Resp 12; Temp 98.5; Pulse Ox 100% ; Weight 100.7 kg; Height 5 vc1 ft. 3 in. ; Pain 10/10; 01:45 BP 164 / 104; Pulse 82; Resp 16; Pulse Ox 100% on R/A; al5 02:00 BP 157 / 96; Pulse 71; Resp 14; Pulse Ox 99% on R/A; al5 02:15 BP 153 / 95; Pulse 77; Resp 16; Pulse Ox 99% on R/A; al5 02:30 BP 141 / 94; Pulse 74; Resp 18; Pulse Ox 97% on R/A; al5 03:00 BP 157 / 91; Pulse 71; Resp 16; Pulse Ox 99% on R/A; al5 03:30 BP 147 / 90; Pulse 70; Resp 15; Pulse Ox 99% on R/A; al5 04:00 BP 128 / 92; Pulse 71; Resp 15; Pulse Ox 98% on R/A; al5 01:31 Body Mass Index 39.33 (100.70 kg, 160.02 cm) vc1 01:31 Pain Scale: Adult vc1 ED Course: 01:18 Patient arrived in ED. [id number] 01:19 Hemal Doherty MD is Attending Physician. rt 01:29 Naty Felder RN is Primary Nurse. al5 01:30 Patient has correct armband on for positive identification. Bed in low position. Call al5 light in reach. Side rails up X2. Provided Education on: plan of care. Client placed on continuous cardiac and pulse oximetry monitoring. NIBP monitoring applied. magnetic tape winder on. 01:30 No provider procedures requiring assistance completed. Inserted saline lock: 20 gauge al5 in right antecubital area, using aseptic technique. Blood collected. Flushed with 10 mL NS. Patient maintains SpO2 saturation greater than 95% on room air. 01:33 Triage completed. vc1 01:36 Arm band placed on right wrist. vc1 02:55 CT Chest For PE Angio In Process Unspecified. EDMS 04:26 IV discontinued, intact, bleeding controlled, No redness/swelling at site. Pressure al5 dressing applied. Administered Medications: 01:53 Drug: Aspirin PO Chewable Tablet 324 mg PO once; 81 mg tablets x 4 Route: PO; al5 02:33 Follow up: Response: No adverse reaction; Pain is unchanged, physician notified; Pain al5 is unchanged 01:53 Drug: Nitroglycerin Sublingual 0.4 mg Sublingual once; every five minute if needed x3 al5 Route: Sublingual; 02:33 Drug: Nitroglycerin Sublingual 0.4 mg Sublingual once; every five minute if needed x3 al5 Route: Sublingual; 02:33 Follow up: Response: No adverse reaction; Pain is unchanged, physician notified; Pain al5 is unchanged, dose #2 given 03:03 Follow up: Response: No adverse reaction; Pain is unchanged, physician notified al5 03:34 Follow up: nitroglycerin not touching patient pain, switching pain medicines. al5 03:25 Drug: Ondansetron IVP 4 mg IVP once; over 2 minutes Route: IVP; Site: right antecubital;bm8 04:07 Follow up: Response: No adverse reaction; Nausea is decreased al5 03:26 Drug: morphine IVP or IV 4 mg IVP once over 4 mins Route: IVP; Infused Over: 4 mins; bm8 Site: right antecubital; 04:07 Follow up: Response: No adverse reaction; Pain is decreased al5 03:35 Drug: Nitroglycerin Sublingual 0.4 mg Sublingual once; every five minute if needed x3 al5 {Note: 3rd dose not administered. patient pain not relieved with nitro. MD notified and aware, switching pain medicine..} Route: Sublingual; 03:36 Follow up: Response: No adverse reaction al5 Medication: 01:30 VIS not applicable for this client. al5 Intake: Outcome: 04:12 Discharge ordered by MD. rt 04:26 Discharged to home ambulatory, with significant other, al5 04:26 Condition: good 04:26 Discharge instructions given to patient, Instructed on discharge instructions, follow up and referral plans. medication usage, Demonstrated understanding of instructions, follow-up care, medications, Prescriptions given X 1, 04:27 Patient left the ED. al5 Signatures: Dispatcher [employer] EDMS Erlinda Ochoa [id number] Pita Gregory RN RN 1 Hemal Doherty MD MD rt Soy Sim RN RN bm8 Naty Felder RN RN al5
--- NOTE | 2024-10-06 04:24 | RAD REPORT ---
EXAM DESCRIPTION: Chest For Pe Angio CLINICAL HISTORY: CHEST PAIN COMPARISON: 11/05/2019 TECHNIQUE: CTA of the chest obtained following the uncomplicated intravenous administration of iodina polina contrast. 3-D/MIP reformatted images of the chest available for evaluation. This exam was performed according to our departmental dose-optimization program, which includes automated exposure control, adjustment of the mA and/or kV according to patient size and/or use of iterative reconstruction technique. FINDINGS: Chest: Pulmonary arteries: Contrast bolus is adequate.No filling defects identified in the pulmonary arterie s to suggest pulmonary embolus. Thyroid: No abnormalities of the visualized thyroid. Great Vessels: Great vessels have normal anatomic configuration. Thoracic Aorta: No abnormalities of the thoracic aorta identified. No aortic dissection. Heart: No cardiomegaly, significant pericardial effusion, or coronary artery atherosclerosis Lymph Nodes: No enlarged mediastinal lymph nodes identified. Esophagus: No abnormalities of the esophagus identified. Other: No additional findings. Lungs: No airspace opacities identified. Pleura: No pleural effusion or pneumothorax. Trachea/Airways: No abnormalities of the visualized trachea or airways. Bones: No acute osseous abnormalities identified. Upper Abdomen: Limited images of the upper abdomen demonstrate no definite abnormalities of visualize d portions of the liver, gallbladder, pancreas, spleen, adrenal glands, or kidneys. IMPRESSION: No pulmonary embolus. No aortic dissection. Electronically signed by: Shabbir Jordan DO 10/06/2024 04:04 AM [facility] [id number] Due to temporary technical issues with the PACS/Flexuspine reporting system, reports are being jeffery d by the in-house radiologist without review as a courtesy to ensure prompt reporting the interpreting radiologist is fully responsible for the content of the report. Transcribed Date/Time: 10/06/2024 4:24 AM
[2024-10-06 04:51] VITALS: TEMP 98.5
[2024-10-06 04:59] VITALS: BP 128/92; O2SAT 98
--- NOTE | 2024-10-06 08:50 | EKG ---
Test Date: 2024-10-06 Test Time: 01:24:52 Emergency Medical Service Manager: TRESSA MEASUREMENT RESULTS: Intervals: Rate: 83 NV: 160 QRSD: 80 QT: 372 QTc: 437 [place]: P: 39 NV: 160 QRS: 38 T: 27 INTERPRETIVE STATEMENTS: Normal sinus rhythm Low voltage QRS Borderline ECG Compared to ECG 11/04/2019 23:09:39 No significant changes Electronically Signed On 10-06-24 08:49:22 CEREAL POPPER by Navin Barnhart
== END 2024-10-06 04:27 | disposition home or self-care (01) ==
LOC: ER 01:16
DX: R07.9 Chest pain, unspecified (principal); I10 Essential (primary) hypertension; Z86.711 Personal history of pulmonary embolism; Z28.310 Unvaccinated for COVID-19
CPT/HCPCS: 36415; 71275; 80048; 80076; 84484; 85025; 93005; J2405; Q9967